=== PATIENT | female | born 1990 | race Two or more races ===

== ENCOUNTER 2023-04-07 14:45 | Outpatient (OUT) | payer OTHER, SELFPAY ==
--- NOTE | 2023-04-07 15:23 | US_ITS ---
The [address] [address] Patient Name: HEYDI SAINZ MRN: [id number] date: 1990 Sex: F Assigned Patient Location: LAB Current Patient Location: LAB Accession/Order Number: [id number] Exam Date: 04/07/2023 15:25 Report Date: 04/07/2023 17:01 At the request of: HIMA LINARES Procedure: US pelvis w/ transvaginal EXAM: Pelvic ultrasound HISTORY: . Mennorhagia with regular cycle N92.0 . COMPARISON: None. TECHNIQUE: Transabdominal and transvaginal scanning was performed. FINDINGS: Scanning of the pelvis demonstrates an anteverted uterus measuring 8.6 x 5.1 x 4.6 cm. Endometrial complex measures 8 mm. Right ovary measures 4.3 x 1.8 x 2.2 cm. Color-flow is noted. Follicles are noted. No masses are noted. Left ovary measures 3.1 x 2.6 x 2.3 cm. Color-flow is noted. Follicles are noted. No masses are noted. There is a 1.8 x 1.8 cm complicated avascular cyst in the left ovary. No fluid is noted within the cul-de-sac. US/US pelvis w/ transvaginal Impression: 1. Normal-appearing uterus and endometrial complex. 2. Normal right ovary. 3. 1.8 cm complicated catheter cystic avascular lesion in the left ovary. Findings would be most consistent with a hemorrhagic cyst. Less likely would be an inflammatory mass or neoplasm. Clinical correlation is suggested. You may was consider follow-up in 8-12 weeks. If this is a hemorrhagic cyst, this should show decrease in size and/or resolution. Electronically authenticated by: DEMETRICE MCCOLLUM Date: 04/07/2023 17:01
[2023-04-07 15:32] LABS: Basophils Percent Auto 0.4 % (0.2-2.0); Eosinophils Absolute Auto 0.1 10^3/uL (0.0-0.7); Eosinophils Percent Auto 1.1 % (0.9-7.0); Hematocrit 36.2 % (36.0-48.0); Hemoglobin 11.9 g/dL (12.0-16.0); Immature Granulocytes Abs Auto 0.02 10^3/uL (0.00-0.03); Immature Granulocytes Pct Auto 0.2 % (0.0-0.5); Lymphocytes Absolute Auto 2.1 10^3/uL (1.2-3.8); Lymphocytes Percent Auto 23.5 % (20.5-60.0); Mean Corpuscular HGB Conc 32.9 g/dL (29.9-35.2); Mean Corpuscular Hemoglobin 31.6 pg (26.7-34.0); Mean Corpuscular Volume 96.3 fL (81.0-99.0); Mean Platelet Volume 10.1 fL (9.5-13.5); Monocytes Absolute Auto 0.8 10^3/uL (0.3-0.8); Monocytes Percent Auto 9.1 % (1.7-12.0); Neutrophils Absolute Auto 5.9 10^3/uL (1.4-6.5); Neutrophils Percent Auto 65.7 % (43.0-75.0); Platelet Count 286 10^3/uL (150-450); Red Blood Count 3.76 10^6/uL (4.20-5.40); Red Cell Distribution Width 13.9 % (11.0-15.0)
[2023-04-07 16:02] LABS: Estimated Average Glucose 97 mg/dL
[2023-04-07 16:32] LABS: Free T4 0.88 ng/dL (0.76-1.46)
[2023-04-07 16:36] LABS: HCG Quantitative <1 mIU/mL; Thyroid Stimulating Hormone 1.266 uIU/mL (0.358-3.740)
[2023-04-08 04:10] LABS: FSH 5.5 mIU/mL (.); Luteinizing Hormone(LH) 8.7 mIU/mL (.)
[2023-04-10 07:09] LABS: DHEA, Serum 196 ng/dL (31-701)
== END 2023-04-07 14:46 | disposition home or self-care (01) ==
LOC: LAB 14:52
PROVIDERS: Visit Provider Obstetrics & Gynecology
DX: N92.0 Excessive and frequent menstruation with regular cycle (principal); R10.2 Pelvic and perineal pain; N83.202 Unspecified ovarian cyst, left side
CPT/HCPCS: 36415; 76830; 76856; 82626; 82627; 83001; 83002; 83036; 84439; 84443; 84702; 85025

== ENCOUNTER 2023-05-29 08:55 | Outpatient (OUT) | payer OTHER, SELFPAY | END 2023-05-29 08:56 | disposition home or self-care (01) | LOC: PST 08:56 | PROVIDERS: Visit Provider Obstetrics & Gynecology | DX: Z01.818 Encounter for other preprocedural examination (principal); N92.0 Excessive and frequent menstruation with regular cycle; R10.2 Pelvic and perineal pain; R10.9 Unspecified abdominal pain ==

== ENCOUNTER 2023-06-12 08:18 | Day surgery (SDC) | payer OTHER, SELFPAY ==
[2023-05-29 09:26] VITALS: BP 108/72; PULSE 64; RESP 14; TEMP 36.4; O2SAT 98; BMI 29.8
[2023-06-12] VITALS (15 sets, daily range): BP systolic 85–126; BP diastolic 54–76; PULSE 63–98; RESP 12–20; TEMP 36.1–36.6; O2SAT 98–100; BMI 29.9
[2023-06-12 08:29] LABS: Basophils Percent Auto 0.5 % (0.2-2.0); Eosinophils Absolute Auto 0.1 10^3/uL (0.0-0.7); Eosinophils Percent Auto 1.9 % (0.9-7.0); Hemoglobin 12.2 g/dL (12.0-16.0); Immature Granulocytes Abs Auto 0.01 10^3/uL (0.00-0.03); Immature Granulocytes Pct Auto 0.2 % (0.0-0.5); Mean Corpuscular Hemoglobin 31.3 pg (26.7-34.0); Mean Corpuscular Volume 94.9 fL (81.0-99.0); Monocytes Absolute Auto 0.9 10^3/uL (0.3-0.8); Neutrophils Absolute Auto 3.3 10^3/uL (1.4-6.5); Neutrophils Percent Auto 51.4 % (43.0-75.0); Platelet Count 297 10^3/uL (150-450); Red Cell Distribution Width 13.3 % (11.0-15.0); White Blood Count 6.4 10^3/uL (4.0-11.0)
[2023-06-12] MEDS: LACTATED RINGER'S SOLUTION 1,000 ML 50 ML IV (08:46)
[2023-06-12 08:53] LABS: HCG Quantitative <1 mIU/mL
[2023-06-12] MEDS: SCOPOLAMINE 1 MG/3 DAYS TRANSDERM PATCH 1 PATCH TD (09:56)
--- NOTE | 2023-06-12 11:31 | PM.ONB ---
Brief Operative Note Date of procedure: 06/12/23 Pre-op diagnosis: pelvic pain, menorrhagia Post-op diagnosis: same as pre-op Procedure: NAME OF PROCEDURE: [ D&c hysteroscopy, diagnostic laparoscopy] findings: posterior culdesac endometrial implants, pelvic vascular congestion syndrome PROCEDURE: The patient was taken back to the Operating Room where she was prepped and draped in normal sterile fashion after being placed under general anesthesia without difficulty. She was also placed in the dorsal lithotomy position. A weighted speculum was placed in the patient?s vagina. The anterior lip of the cervix was identified and grasped with a single tooth tenaculum. The patient?s uterus was then sounded roughly to [? 8] cm. The patient was then gently dilated using Hegar dilators. The hysteroscope was passed through the patient?s cervix into the uterus. Both ostia were identified. fluffy appearing endometrium. No gross evidence of malignancy, no gross evidence of polyps or fibroids. At that point, gentle curettage was performed until a gritty texture was noted. The endometrial curettings were sent out to pathology. The single tooth tenaculum was then removed from the patient's anterior lip of the cervix where excellent hemostasis was noted. . A sponge stick was placed into the patient's vagina. Attention was turned to the patient's abdomen, where a small umbilical incision was made. The fascia was tented using Yasmany clamps and the fascia was entered sharply. Confirmation of intraabdominal placement of the 10 mm port was confirmed under direct visualization using a laparoscope. The patient's abdomen was then insufflated using CO2 gas with approximately 4 liters. A second port was placed left laterally, this was done under direct visualization with a 5 mm port. Survey of the patient's abdomen demonstrated normal liver and gallbladder. Survey of the patient's pelvic anatomy demonstrated normal appearing rt and lt ovary and absent tubes as well as normal appearing uterus. posterior culdesac endometrial implants could be noted, no evidence of any pelvic disease was seen, normal appearing pelvic cavity. All instruments were removed from the patient's abdomen. The patient's abdomen was deinsufflated of CO2 gas. The patient tolerated the procedure well. Sponge stick was removed from the patient's vagina. The patient's infraumbilical fascia was closed using #0 Vicryl on a GI needle. The patient's skin was closed laterally and infraumbilically using 4-0 Vicryl. The patient tolerated the procedure well. Sponge, lap and needle counts were correct x 2. The patient was taken to Recovery Room in stable condition. Anesthesia: MARY Surgeon: Daniel Garsia Lead Javascript Engineer: Agatha Morrison Estimated blood loss (mL): 5 Pathology: other (endometrial currettings) Condition: stable Disposition: PACU
[2023-06-12] MEDS: HYDROCODONE/ACET 5-325 MG TABLET 1 TAB PO (11:58)
[2023-06-12] MEDS: HYDROMORPHONE HCL 0.5 MG/0.5 ML SYRINGE IV (12:07)
[2023-06-12] MEDS: PROMETHAZINE HCL 25 MG TABLET PO (12:54)
== END 2023-06-12 13:55 | disposition home or self-care (01) ==
PROVIDERS: Visit Provider Obstetrics & Gynecology
PROC: (CPT 49320; principal; 2023-06-12 09:30)
DX: N92.0 Excessive and frequent menstruation with regular cycle (principal); R10.2 Pelvic and perineal pain; R10.9 Unspecified abdominal pain; Z87.891 Personal history of nicotine dependence; Z98.51 Tubal ligation status; N94.89 Other specified conditions associated with female genital organs and menstrual cycle
CPT/HCPCS: 49320; 58558; 36415; 84702; 85025; 88305; J1170; J2704

== ENCOUNTER 2023-09-09 21:34 | Outpatient (REF) | payer OTHER, SELFPAY ==
--- OUTSIDE RECORDS SUMMARY | 2023-09-09 21:37 | XMS_ITS | CCD ---
Author Name Unknown Address [address] [place] [address] Organization [facility] Care Team Providers Care Digital Sales Representative Name Role Phone FRANSISCA GARCIA Attending Unavailable Results Test Name Value Interpretation Reference Range Facility Comprehensive Metabolic Pane [facility] 04-16-2023 Albumin [Mass/Vol] 4.7 g/dL Critically high 3.5-4.6 M [facility] Comment on above: Performed By: #### C MP #### [facility] [address] [place] [address] ALP [Catalytic activity/Vol] 41 U/L Normal 40-130 [facility] Comment on above: Performed By: #### C MP #### [facility] [address] [place] [address] ALT [Catalytic activity/Vol] 9 U/L Normal 0-33 [facility] Comment on above: Performed By: #### C MP #### [facility] [address] [place] [address] Anion gap [Moles/Vol] 12 mmol/L Normal 9-15 [facility] Comment on above: Performed By: #### C MP #### [facility] [address] [place] [address] AST [Catalytic activity/Vol] 14 U/L Normal 0-35 [facility] Comment on above: Performed By: #### C MP #### [facility] [address] [place] [address] Bilirubin [Mass/Vol] 0.5 mg/dL Normal 0.2-0.7 [facility] Comment on above: Performed By: #### C MP #### [facility] [address] [place] [address] Calcium [Mass/Vol] 9.2 mg/dL Normal 8.5-9.9 [facility] Comment on above: Performed By: #### C MP #### [facility] [address] [place] [address] Chloride [Moles/Vol] 104 mmol/L Normal 95-107 [facility] Comment on above: Performed By: #### C MP #### [facility] [address] [place] [address] CO2 [Moles/Vol] 24 mmol/L Normal 20-31 [facility] Comment on above: Performed By: #### C MP #### [facility] [address] [place] [address] Creatinine [Mass/Vol] 0.71 mg/dL Normal 0.50-0.90 [facility] Comment on above: Performed By: #### C MP #### [facility] [address] [place] [address] GFR >60.0 Normal >60 [facility] Comment on above: Result Comment: Pedi atric calculator link https://www.kidney.org/professionals/kdoqi/gfr_calculatorped Effective May 05, 2022 These results are not intended for use in patients <18 years of age. eGFR results are calculated without a race factor using the 2020 CKD-EPI equation. Careful clinical correlation is recommended, particularly when comparing to results calculated using previous equations. The CKD-EPI equation is less accurate in patients with extremes of muscle mass, extra-renal metabolism of creatinine, excessive creatinine ingestion, or following therapy that affects renal tubular secretion. Performed By: #### C MP #### [facility] [address] [place] [address] Globulin (S) [Mass/Vol] 2.3 g/dL Normal 2.3-3.5 [facility] Comment on above: Performed By: #### C MP #### [facility] [address] [place] [address] Glucose [Mass/Vol] 102 mg/dL Critically high 70-99 [facility] Comment on above: Performed By: #### C MP #### [facility] [address] [place] [address] Potassium [Moles/Vol] 4.4 mmol/L Normal 3.4-4.9 [facility] Comment on above: Performed By: #### C MP #### [facility] [address] [place] [address] Protein [Mass/Vol] 7.0 g/dL Normal 6.3-8.0 [facility] Comment on above: Performed By: #### C MP #### [facility] [address] [place] [address] Sodium [Moles/Vol] 140 mmol/L Normal 135-144 [facility] Comment on above: Performed By: #### C MP #### [facility] [address] [place] [address] Urea nitrogen [Mass/Vol] 14 mg/dL Normal 6-20 [facility] Comment on above: Performed By: #### C MP #### [facility] [address] [place] [address] Lipid Panelon 04-16-2023 Cholesterol [Mass/Vol] 193 mg/dL Normal 0-199 [facility] Comment on above: Result Comment: ATP III Cholesterol classification is Desirable. Performed By: #### L IPID #### [facility] [address] [place] [address] Cholesterol in HDL [Mass/Vol] 67 mg/dL Critically high 40-59 [facility] Comment on above: Result Comment: ATP III HDL Cholesterol Classification is high. Expected Values: Males: >55 = No Risk 35-55 = Moderate Risk <35 = High Risk Females: >65 = No Risk 45-65 = Moderate Risk <45 = High Risk NCEP Guidelines: Third Report December 2000 >59 = negative risk factor for CHD <40 = major risk factor for CHD Performed By: #### L IPID #### [facility] [address] [place] [address] Cholesterol in LDL [Mass/Vol] 115 mg/dL Normal 0-129 [facility] Comment on above: Result Comment: ATP III LDL Classification is Near Optimal. Performed By: #### L IPID #### [facility] [address] [place] [address] Triglyceride [Mass/Vol] 54 mg/dL Normal 0-150 [facility] Comment on above: Result Comment: ATP III Triglycerides Classification is Normal. Performed By: #### L IPID #### [facility] [address] [place] [address] Comprehensive Metabolic Pane jackie 05-27-2021 Albumin [Mass/Vol] 4.7 g/dL Critically high 3.5-4.6 [facility] Comment on above: Performed By: #### C MP #### [facility] [address] [place] [address] ALP [Catalytic activity/Vol] 37 U/L Low 40-130 [facility] Comment on above: Performed By: #### C MP #### [facility] [address] [place] [address] ALT [Catalytic activity/Vol] 7 U/L Normal 0-33 [facility] Comment on above: Performed By: #### C MP #### [facility] [address] [place] [address] Anion gap [Moles/Vol] 15 mmol/L Normal 9-15 [facility] Comment on above: Performed By: #### C MP #### [facility] [address] [place] [address] AST [Catalytic activity/Vol] 13 U/L Normal 0-35 [facility] Comment on above: Performed By: #### C MP #### [facility] [address] [place] [address] Bilirubin [Mass/Vol] mg/dL Normal 0.2-0.7 [facility] Comment on above: Performed By: #### C MP #### [facility] [address] [place] [address] Calcium [Mass/Vol] 9.4 mg/dL Normal 8.5-9.9 [facility] Comment on above: Performed By: #### C MP #### [facility] [address] [place] [address] Chloride [Moles/Vol] 103 mmol/L Normal 95-107 [facility] Comment on above: Performed By: #### C MP #### [facility] [address] [place] [address] CO2 [Moles/Vol] 24 mmol/L Normal 20-31 [facility] Comment on above: Performed By: #### C MP #### [facility] [address] [place] [address] Creatinine [Mass/Vol] 0.79 mg/dL Normal 0.50-0.90 [facility] Comment on above: Performed By: #### C MP #### [facility] [address] [place] [address] GFR >60.0 Normal >60 [facility] Comment on above: Result Comment: [place] atric calculator link https://www.kidney.org/professionals/kdoqi/gfr_calculatorped Effective May 05, 2022 These results are not intended for use in patients <18 years of age. eGFR results are calculated without a race factor using the 2020 CKD-EPI equation. Careful clinical correlation is recommended, particularly when comparing to results calculated using previous equations. The CKD-EPI equation is less accurate in patients with extremes of muscle mass, extra-renal metabolism of creatinine, excessive creatinine ingestion, or following therapy that affects renal tubular secretion. Performed By: #### C MP #### [facility] [address] [place] [address] Globulin (S) [Mass/Vol] 2.5 g/dL Normal 2.3-3.5 [facility] Comment on above: Performed By: #### C MP #### [facility] [address] [place] [address] Glucose [Mass/Vol] 87 mg/dL Normal 70-99 [facility] Comment on above: Performed By: #### C MP #### [facility] [address] [place] [address] Potassium [Moles/Vol] 4.3 mmol/L Normal 3.4-4.9 [facility] Comment on above: Performed By: #### C MP #### [facility] [address] [place] [address] Protein [Mass/Vol] 7.2 g/dL Normal 6.3-8.0 [facility] Comment on above: Performed By: #### C MP #### [facility] [address] [place] [address] Sodium [Moles/Vol] 142 mmol/L Normal 135-144 [facility] Comment on above: Performed By: #### C MP #### [facility] [address] [place] [address] Urea nitrogen [Mass/Vol] 11 mg/dL Normal 6-20 [facility] Comment on above: Performed By: #### C MP #### [facility] [address] [place] [address] Lipid Panelon 05-27-2021 Cholesterol [Mass/Vol] 182 mg/dL Normal 0-199 [facility] Comment on above: Result Comment: ATP III Cholesterol classification is Desirable. Performed By: #### L IPID #### [facility] [address] [place] [address] Cholesterol in HDL [Mass/Vol] 52 mg/dL Normal 40-59 [facility] Comment on above: Result Comment: ATP III HDL Cholesterol Classification is Desirable. Expected Values: Males: >55 = No Risk 35-55 = Moderate Risk <35 = High Risk Females: >65 = No Risk 45-65 = Moderate Risk <45 = High Risk NCEP Guidelines: Third Report December 2000 >59 = negative risk factor for CHD <40 = major risk factor for CHD Performed By: #### L IPID #### [facility] [address] [place] [address] Cholesterol in LDL [Mass/Vol] 117 mg/dL Normal 0-129 [facility] Comment on above: Result Comment: ATP III LDL Classification is Near Optimal. Performed By: #### L IPID #### [facility] [address] [place] [address] Triglyceride [Mass/Vol] 65 mg/dL Normal 0-150 [facility] Comment on above: Result Comment: ATP III Triglycerides Classification is Normal. Performed By: #### L IPID #### [facility] [address] [place] [address] IntraOperative Documentson 0 10-29-2020 IntraOperative Documents [id number]. 00CD:127 Normal [facility] Postoperative Documentson Postoperative Documents [id number]. 00CD:127 Normal [facility] Coding Summary.on 10-24-2020 Coding Summary. CODING DATE: 10/24/2020 FINAL [facility] STATUS: Home (Routine DC) PAYOR: Medical [facility] APC DESCRIPTION 5361 Level 1 Laparoscopy and Related Services ADMIT DX: REASON FOR VISIT DX: Z30.2 Encounter for sterilization FINAL DX: PRINCIPAL: Z30.2 Encounter for sterilization SECONDARY: Z87.891 Personal history of nicotine dependence PYMT PROC APC STAT DESCRIPTION DOCTOR NAME DATE 22631 5361 J1 Laparoscopy, surgical; Keyon MACIAS, Zeeshan Hernandez 10/19/2020 with removal of adnexal structures (partial or total oophorectomy and/or salpingectomy) 28082 Anesthesia for Finesse Rudolph MD 10/19/2020 intraperitoneal procedures in lower abdomen including laparoscopy; not otherwise specified NOTE: The code number assigned matches the documented diagnosis and / or procedure in the patient's chart. However, the narrative phrase printed from the coding software may appear abbreviated, or result in slightly different terminology. Revised Coded By: Elina Arreola Revised Date Saved: 10/24/2020 03:12 pm Normal [facility] Main OR Intraoperative Recor don 10-23-2020 Main OR Intraoperative Record IntraOp Document Type FT Summary Primary Physician: Zeeshan Ta MD Finalized Date/Time: 10/23/20 13:49:53 Pt. Name: HEYDI SAINZ /Sex: 1990 Female Med Rec #: [id number] Physician: Zeeshan Ta MD Financial #: [id number] Pt. Type: A Room/Bed: [facility]/ Admit/Disch: 10/19/20 11:05:15 - 10/19/20 16:15:00 Institution: Case Times FT Entry 1 Patient Times In Room 10/19/20 12:59:00 Out Room 10/19/20 13:49:00 Procedure Times Start 10/19/20 13:16:00 Stop 10/19/20 13:45:00 Anesthesia Times Start 10/19/20 12:59:00 Stop 10/19/20 13:49:00 Last Modified By: Isaías ASHRAF, Stuart Quinn 10/19/20 13:49:17 General Comments: 10/23/20 Chart open to review and send charges/ Cheyenne Montaño RN Case Attendance FT Entry 1 Entry 2 Entry 3 Case Attendee Jeremie ROJAS, Laurence Ta MD, Zeeshan Metz RN, Stuart Quinn Role Performed Anesthesiologist Surgeon - Primary House Director - Primary Melt Room Operator Time In 10/19/20 12:59:00 10/19/20 13:13:00 10/19/20 12:59:00 Time Out 10/19/20 13:49:00 10/19/20 13:39:00 10/19/20 13:49:00 Procedure TUBAL LIGATION TUBAL LIGATION TUBAL LIGATION LAPAROSCOPIC(Bilateral ) LAPAROSCOPIC(Bilateral ) LAPAROSCOPIC(Bilateral ) Comments , anesthesia converter supervisor Last Modified By: Isaías RN, Stuart Metz RN, Stuart Metz RNStuart 10/19/20 13:53:59 10/19/20 13:53:59 10/19/20 13:53:59 Entry 4 Entry 5 Entry 6 Case Attendee Jarred ASHRAF, Dallas Tong CONTACT ACID PLANT OPERATOR, Tonya Montaño RN, CNOR, Yani Role Performed House Director - Primary Scrub - Primary BEEF CATTLE GRAZIER Time In 10/19/20 12:59:00 10/19/20 12:59:00 10/19/20 12:59:00 Time Out 10/19/20 13:49:00 10/19/20 13:49:00 10/19/20 13:49:00 Procedure TUBAL LIGATION TUBAL LIGATION TUBAL LIGATION LAPAROSCOPIC(Bilateral ) LAPAROSCOPIC(Bilateral ) LAPAROSCOPIC(Bilateral ) Comments in orientation Last Modified By: Stuart Metz RN, RN, Stuart Stephenson RN 10/19/20 13:53:59 10/19/20 13:53:59 10/19/20 13:53:59 General Comments: MAUDE VAZ SURGICAL TECHNOLOGY STUDENT, OBSERVING SURGICAL PROCEDURE. Perioperative Protocols FT Pre-Care Text: Implements protective measures prior to operative or invasive procedure, confirms identity before the operative or invasive procedure, verifies operative procedure, surgical site, and laterality Entry 1 Procedure(s) TUBAL LIGATION Patient Identity Birthday, ID Band LAPAROSCOPIC(Bilateral ) Verified (select at Check, Patient least 2): Participation Consents / H and P Anesthesia Consent, Surgical Site Yes Verified HandP, Surgery/Procedure Verified Consent Laterality Verified n/a Procedure Verified Yes Correct Patient Yes Availability Equipment, Medication Position Verified Verified (If Applicable) Prep Dry Yes PreOp Antibiotic No Given Time Out Laurence Ash Time Out Complete 10/19/20 13:15:00 Keyon Abdalla MD, James D, Krupp RN, Jarred Levin RN, Alycia Shrestha CST, Sabra Bowden RN, CNOR, Dolly Valle Outcomes Met? Yes Last Modified By: Stuart Metz RN 10/19/20 13:16:11 Post-Care Text: The patient is free from signs and symptoms of injury caused by extraneous objects Allergy Information FT Pre-Care Text: Verifies allergies Entry 1 Allergies Reviewed? Yes Allergies Reviewed Self/Patient With Outcomes Met? Yes Last Modified By: Stuart Metz RN 10/19/20 12:56:31 Post-Care Text: The patient received appropriate medication(s) safely administered during the perioperative period Surgical Procedures FT Entry 1 Procedure Description Procedure TUBAL LIGATION Modifiers Bilateral LAPAROSCOPIC Surgeon Description LAPAROSCOPIC BILATERAL SALPINGECTOMY Primary Procedure Yes Primary Surgeon Zeeshan Ta MD Start 10/19/20 13:16:00 Stop 03/19/21 13:45:00 Anesthesia Type General Surgical Service Obstetric Gynecology Wound Class 2 - Clean-Contaminated Last Modified By: Stuart Metz RN 10/19/20 13:54:06 General Case Data FT Pre-Care Text: Classifies surgical wound, implements aseptic technique, initiates traffic control Entry 1 Case Information OR OR 6 FT Case Level Level 3 Wound Class 2 - Clean-Contaminated Specialty Obstetric Gynecology ASA Class 2 Preop Diagnosis DESIRE FOR STERILIZATION Postop Same As Preop Yes Postop Diagnosis DESIRE FOR STERILIZATION Outcomes Met? Yes Last Modified By: Stuart Metz RN 10/19/20 13:14:51 Post-Care Text: The patient is free from signs and symptoms of infection Skin Assessment (Pre Procedure) FT Pre-Care Text: Implements protective measures to prevent skin/ tissue injury due to thermal or mechanical sources Evaluates for signs and symptoms of physical injury to skin and tissue Entry 1 Skin Integrity Intact, [place], Warm, and Skin Abnormality No Dry Outcomes Met? Yes Last Modified By: Stuart Metz RN 10/19/20 12:59:44 Post-Care Text: The patient is free from signs and symptoms of injury caused by extraneous objects Patient Positioning FT Pre-Care Text: Identifies physical alterations that require additional precautions for procedure-specific positioning, verifies presence of prosthetics or corrective devices, positions the patient, evaluates the patient for signs and symptoms of injury as a result of positioning Entry 1 Procedure TUBAL LIGATION Body Position Low Lithotomy LAPAROSCOPIC(Bilateral ) Feet Uncrossed? Yes Left Arm Position Extended on Padded Arm Board Right Arm Position Extended on Padded Arm Left Leg Position Secured in Stirrup Board Right Leg Position Secured in Stirrup Positioning Device Safety Strap, Stirrups Yellow Fins, Pillow Under Head Large Press Points Checked Yes By Stuart Metz RN Outcomes Met? Yes Last Modified By: Stuart Metz RN 10/19/20 12:59:52 Post-Care Text: The patient is free from signs and symptoms of injury related to positioning Patient Care Devices FT Pre-Care Text: Implements protective measures to prevent skin/ tissue injury due to thermal or mechanical sources Entry 1 Entry 2 Entry 3 Equipment Type INSUFLATORS[F] INSUFLOW HEATER UNIT[F] LIGASURE GENERATOR[F] Equipment Number BOOM OR 6 BOOM OR 6 C1 Equipment Setting Outcomes Met? Yes Yes Yes Last Modified By: Isaías ASHRAF, Stuart Metz RN, Stuart Stephenson RN 10/19/20 13:49:11 10/19/20 13:49:11 10/19/20 13:49:11 Entry 4 Entry 5 Entry 6 Equipment Type MISTRAL FORCED AIR MONITOR CHARGE SURGERY PADDED STIRRUPS [F] WARMING SYSTEM UNIT[F] [F] Equipment Number M2 Equipment Setting Outcomes Met? Yes Yes Yes Last Modified By: Isaías ASHRAF, Stuart Metz RN, Stuart Stephenson RN 10/19/20 13:49:11 10/19/20 13:49:11 10/19/20 13:49:11 Entry 7 Entry 8 Equipment Type VENA FLOW UNIT[F] VIDEO SYSTEM[F] Equipment Number Equipment Setting Outcomes Met? Yes Yes Last Modified By: Isaías ASHRAF, Stuart Stephenson RN 10/19/20 13:49:11 10/19/20 13:49:11 Post-Care Text: The patient is free from signs and symptoms of injury caused by extraneous objects Transport To OR FT Pre-Care Text: Transports according to individual needs. Evaluates for signs and symptoms of skin and tissue injury as a result of transfer or transport Entry 1 Via Cart By Jarred ASHRAF, Dallas Cisneros Safety Precautions Side Rails Up Outcomes Met? Yes Last Modified By: Stuart Metz RN 10/19/20 12:56:41 Post-Care Text: The patient is free from signs and symptoms of injury related to transfer/transport Counts Verification FT Pre-Care Text: Performs required counts Entry 1 Entry 2 Procedure(s) TUBAL LIGATION TUBAL LIGATION LAPAROSCOPIC(Bilateral ) LAPAROSCOPIC(Bilateral ) Type Initial Final Items Instruments, Sponges, Sponges, Sharps Sharps Status Correct Correct Time 10/19/20 13:09:00 10/19/20 13:37:00 By Jarred ASHRAF, Dallas Cisneros, Jarred ASHRAF, Dallas Cisneros, Alycia CONTACT ACID PLANT OPERATOR, Tonya Tong CONTACT ACID PLANT OPERATOR, Tonya Randle Outcomes Met? Yes Yes Last Modified By: Isaías ASHRAF, Stuart Stephenson RN 10/19/20 13:14:31 10/19/20 13:38:36 Post-Care Text: The patient is free from signs and symptoms of injury caused by extraneous objects Skin Prep FT Pre-Care Text: Performs skin preparations Entry 1 Entry 2 Procedure TUBAL LIGATION TUBAL LIGATION LAPAROSCOPIC(Bilateral ) LAPAROSCOPIC(Bilateral ) Prep Area abdomen VAGINA Prep Agents Chloraprep/Dry Prior to Betadine Scrub and Draping Solution Start Dry Time 10/19/20 13:11:00 Stop Dry Time 10/19/20 13:14:00 Hair Removal Methods Not Indicated Not Indicated Site By Stuart Metz RN, RN, Dallas Cisneros Outcomes Met? Yes Yes Last Modified By: Stuart Metz RN, RN, Andrea L 10/19/20 13:13:55 10/19/20 13:13:55 Post-Care Text: The patient is free from signs and symptoms of infection Departure From OR FT Pre-Care Text: Transports according to individual needs. Evaluates for signs and symptoms of skin and tissue injury as a result of transfer or transport. Entry 1 Via Cart Safety Precautions Side Rails Up PostOp Destination PACU Transported By Stuart Metz RN, Rogers RN, Dallas Cisneros Patient Status Stable Skin. Condition Intact, [place], Warm, and Description SAME PREOPERATIVE Dry CONDITION WITH EXCEPTION OF ABDOMINAL PORT SURGICAL INCISION SITES. Airway Maintenance Oxygen in Use? Yes Airway Device Simple Mask Flow Rate 8 L Outcomes Met? Yes Last Modified By: Stuart Metz RN 10/19/20 13:22:38 Post-Care Text: The patient is free from signs and symptoms of injury related to transfer/transport General Comments: VERBAL AND WRITTEN REPORT GIVEN TO PACU NURSEKali LÓPEZ RN Dressing/Packing FT Pre-Care Text: Administers care to wound sites Entry 1 Type Dressing Items BANDAID SHEER 1 X 3 [99044][F] Site and Details ABDOMEN- MASTISOL, Outcomes Met? Yes STERI STRIPS, BAND AIDS. VAGINA- BLANCA PAD Last Modified By: Stuart Metz RN 10/19/20 13:23:03 Post-Care Text: The patient is free from signs and symptoms of infection Medication Administration FT Pre-Care Text: Verifies allergies, administers prescribed medications and solutions, administers prescribed antibiotic therapy and immunizing agents as ordered, evaluates response to medications Administers prescribed medications and solutions Entry 1 Route of Admin Field Expiration Date Yes Verified Ordered By Zeeshan Ta MD Transcribed/To Stuart Metz RN Field By Administered By Zeeshan Ta MD Outcomes Met? Yes Last Modified By: Stuart Metz RN 10/19/20 12:59:32 Post-Care Text: The patient received appropriate medication(s) safely administered during the perioperative period For Sebastian-Joseph please see scanned medication reconcilliation form for medications used at the field during the procedure. Urinary Catheter Pre-Care Text: Patient is prepped using sterile technique. Entry 1 Urinary Catheter CATH URETHRAL STRAIGHT Present Upon Arrival No Inserted 16FR [[id number]][F] Insertion Date/Time 10/19/20 13:15:00 Insertion Site Uretheral Urine URINE OUTPUT NOT Inserted By Dallas Stern RN Characteristics MEASURED FOR CASE Discontinued? Yes When was the Immediately Discontinued catheter discontinued? DC'd By Dallas Stern RN Outcomes Met? Yes Last Modified By: Stuart Metz RN 10/19/20 13:13:19 Post-Care Text: The patient is free from signs of trauma. Cultures and Specimens FT Pre-Care Text: Manages specimen handling and disposition Manages culture specimen collection Entry 1 Cultures Ordered No Specimens Ordered Yes Specimen Disposition Designated OR Area Frozen Section Times Outcomes Met? Yes Last Modified By: Stuart Metz RN 10/19/20 13:31:57 Post-Care Text: The patient is free from signs and symptoms of injury caused by extraneous objects The patient is free from signs and symptoms of infection General Comments: specimen; 1. left fallopian tube 2. right fallopian tube- A.ANDRIY Metz Temperature Control Entry 1 Temperature Control BLANKET MISTRAL AIR Quantity 1 Aid TORSO [[id number]][F] Fluid/[place] Unit Mistral warming system Setting 43 C/ HIGH Body Site Upper anterior torso Last Modified By: Stuart Metz RN 10/19/20 13:23:28 Sign Out FT Entry 1 Before Patient Leaves OR Nurse verbally Yes Nurse verbally Yes confirms with the confirms with the team the name of team that the procedure(s) instrument, sponge, recorded and needle counts are correct (or N/A) Nurse verbally Yes Nurse verbally Yes confirms with the confirms with the team how the team whether there specimen is labeled are any equipment (including patient problems to be name), if applicable addressed Sign Out Complete 10/19/20 13:38:00 Last Modified By: Isaías ASHRAF Stuart L 10/19/20 13:38:47 Case Comments Finalized By: ANGEL Montaño RN, Lou Ann Document Signatures Signed By: Stuart Mezt RN 10/19/20 13:54 Stuart Metz RN 10/19/20 13:54 ANGEL Montaño RN, Lou Ann 10/23/20 13:49 [facility] Consent for Anesthesiaon Consent for Anesthesia [id number] 0CD:127 [facility] Discharge Instructionson Discharge Instructions [id number] 0CD:127 [facility] IntraOperative Documentson 0 10-22-2020 IntraOperative Documents [id number] 0CD:127 [facility] IntraOperative Documents [id number] 0CD:127 [facility] Physician Orderon 10-22-2020 Physician Order [id number] 0CD:127 [facility] Preoperative Documentson Preoperative Documents [id number]#1.0 0CD:127 [facility] Operative Reporton Operative Report Date of Surgery: 10/19/2020 SURGEON: Zeeshan Ta MD, FACOG PREOPERATIVE DIAGNOSIS: Multiparity, patient desires sterilization POSTOPERATIVE DIAGNOSIS: Multiparity, patient desires sterilization OPERATION: Bilateral salpingectomy for sterilization ANESTHESIA: General ANESTHESIOLOGIST: CRYSTAL Romero PREOPERATIVE HISTORY: The patient is a 30 year old white female who presented to my office desirous of operative sterilization. She stated she no longer desired reproductive capacity. We discussed the alternatives of long acting reversible contraction, other methods could be used. She was resolute in her decision for operative sterilization. We discussed the risks involved including bleeding, infection, injury to internal organs, the permanence of procedure, failure rate associated with procedure, risk of regret, risk of ectopic all of which she understood and accepted, appropriately signed consent forms and was made ready for the Operative Suite. OPERATIVE TECHNIQUE: The patient was taken to the Operative Suite and after general anesthesia was administered the patient was draped and prepped in the usual fashion for abdominal surgery. A sharp knife was used to make a scoring incision subumbilical which allowed for the Veress needle to be placed in the peritoneal cavity. The peritoneal cavity was insufflated with 2 1/2 liters of carbon dioxide to a pressure of 15 mm. Laparoscopic sheath and trocar were introduced into the peritoneal cavity. Secondary and tertiary probes were placed under direct visualization and the uterus appeared normal. The left fallopian tube was followed out to its fimbriated end, grasped with the graspers. The LigaSure device was used to create pedicles underneath the fallopian tube. A series of ligations and incisions were carried out using the LigaSure device allowing for complete removal of the left fallopian tube. Similar procedure was performed on the right side with the right fallopian tube being completely removed. Hemostasis was assured. Estimated blood loss was minimal. The laparoscopic sheaths were used to allow for the gas to escape from the peritoneal cavity and once this was done the laparoscopic sheaths were removed from the peritoneal cavity. Skin edge was closed with 4-0 Vicryl suture in a subcuticular stitch. Steri-Strips and usual dressing applied. Estimated blood loss was minimal. Fluid replacement adequate. There were no complications. Sponge and needle counts correct and the patient was transferred to Recovery Room in stable condition. Zeeshan Ta MD, FACOG [facility] Dictated: 10/19/2020 #[id number] Typed: 10/19/2020 #[id number] cc: Zeeshan Ta MD, MADELEINE [facility] Comment on above: Result Comment: Elec tronically Signed By: Zeeshan Ta MD\.br\Date and Time Signed: 10/20/20 10:50 EDT Consent for Treatmenton 10-01 Consent for Treatment [id number] 0CD:127 [facility] History and Physicalon 10-19 History and Physical HOSPITAL REGULATION S: ALL Positive Important Negative Findings Shall Be Recorded DATE ADMITTED: 10/19/2020 ADMITTING DIAGNOSIS: Multiparity, the patient desires sterilization. HISTORY OF PRESENT ILLNESS: The patient is a 30-year-old white female who presented my office desirous of operative sterilization. She stated the fact that she no longer desires her reproductive capacity. We discussed the alternatives of care including long-acting reversible contraception. She was adamant in her decision for operative sterilization. We discussed the risks involved including bleeding, infection, injury to internal organs, the permanency of procedure, failure rate associated with procedure, risk of regret, risk of ectopic , all of which she understood, accepted, appropriately signed consent forms and made ready for the Operative Suite. PAST MEDICAL HISTORY: Allergies: No known allergies. Medications: No medicines. Illnesses: None. Surgeries: [place] teeth. FAMILY HISTORY: Positive for hypertension. PSYCHOSOCIAL HISTORY: Former smoker, negative for ETOH. REVIEW OF SYSTEMS: Noncontributory. PHYSICAL EXAMINATION: GENERAL: A well-developed, well-nourished, white female in no acute distress. VITAL SIGNS: Afebrile, pulse 80, respirations 18, blood pressure 112/78. HEAD AND E.E.N.T.: Normocephalic. Extraocular muscles intact. The pupils equal and responsive to light and accommodation. Nose and throat clear. NECK: Without masses. Without thyromegaly. LUNGS: Clear to auscultation and percussion. HEART: Regular rate and rhythm. BREASTS: Nonpathologic. ABDOMEN: Soft, nontender. Positive bowel sounds without organomegaly. EXTREMITIES: Negative for clubbing, cyanosis or edema. PELVIC: Normal external genitalia. Vault within normal limits. Cervix without lesion. Uterus generous normal size, shape, consistency. Adnexa without mass, nontender. IMPRESSION: A 30-year-old for operative sterilization. Zeeshan Ta MD, FACOG gls Dictated: 10/18/2020 #[id number] Typed 10/19/2020 #[id number] cc: Zeeshan Ta MD, FACOG [facility] Comment on above: Result Comment: Elec tronically Signed By: Zeeshan Ta MD\.br\Date and Time Signed: 10/19/20 09:57 EDT Inpatient Patient Summaryon 10-19-2020 Inpatient Patient Summary [address] [address] [facility] Clinical Discharge Instructions PERSON INFORMATION Name: HEYDI SAINZ [facility]ANS Admitting Physician: Zeeshan Ta MD Attending Physician: Zeeshan Ta MD PCP: Karissa CALDERON MD Discharge Diagnosis: Encounter for sterilization; Status post bilateral salpingectomy Comment: PATIENT EDUCATION INFORMATION Instructions: ACOUSTICAL CARPENTER - Post D&C, Hysteroscopy, LEEP or Essure/Laparoscopy (CUSTOM); Post Op Patient Instructions - FT (CUSTOM) Medication Leaflets: Follow up: With: Address: When: Zeeshan Ta [address] [place] [address] Business (1) Within 2 weeks Comments: Call for any problems. Call for followup appointment MEDICATION LIST New Medications [facility] 0382, [address] [phone], [phone] acetaminophen-oxycodon e (Percocet 325 mg-5 mg Tab) 1 Tablets By Mouth every 6 hours as needed for pain for 2 Days. Refills: 0. Medications to Continue with No Changes Other Medications multivitamin (Multi Vitamins oral tablet) 1 Tablets By Mouth every day as needed Prophylaxis. Comment: [facility] Main OR PACU I Recordon 10-01 Main OR PACU I Record PACU Phase I Document Type FT Summary Primary Physician: Zeeshan Ta MD Finalized Date/Time: 10/19/20 15:20:31 Pt. Name: TIRSO SAINZRUSLAN Morris D.O.B./Sex: 1990 Female Med Rec #: [id number] Physician: Zeeshan Ta MD Financial #: [id number] Pt. Type: A Room/Bed: [facility] Admit/Disch: 10/19/20 11:05:15 - Institution: Case Times PACU I FT Pre-Care Text: Identifies barriers to communication and implements measures to provide psychological support Develops individualized plan of care, and ensures continuity of care Maintains patient's dignity and privacy, and maintains patient confidentiality Identifies and reports philosophical, cultural, and spiritual beliefs and values Identifies individual values and wishes concerning care Implements aseptic technique, and administers prescribed antibiotic therapy and immunizing agents as ordered Evaluates postoperative tissue perfusion Implements thermoregulation measures, and monitors body temperature Evaluates postoperative respiratory status Evaluates postoperative cardiac status Evaluates postoperative neurological status Assesses pain control, collaborated in initiating patient-controlled analgesia and implements alternative methods of pain control Verifies allergies, administers prescribed medications and solutions, evaluates response to medications Entry 1 In PACU I 10/19/20 13:50:00 Discharge from PACU 10/19/20 14:44:00 I Outcomes Met? Yes Last Modified By: Lindy Garcia RN 10/19/20 15:20:06 Post-Care Text: The patient demonstrates knowledge of the expected response to the operative or invasive procedure The patient's care is consistent with the individualized perioperative plan of care The patient's right to privacy is maintained The patient's value system, lifestyle, ethnicity, and culture are considered, respected, and incorporated into the perioperative plan of care The patient participates in decisions affecting his or her perioperative plan of care The patient is free from signs and symptoms of infection The patient has wound/tissue perfusion consistent with or improved from baseline levels established preoperatively The patient is at or returning to normothermia at the conclusion of the immediate postoperative period The patient's respiratory function is consistent with or improved from baseline levels established preoperatively The patient's cardiovascular status is consistent with or improved from baseline levels established preoperatively The patient's cardiovascular status is consistent with or improved from baseline levels established preoperatively The patient demonstrates and/or reports adequate pain control throughout the perioperative period The patient received appropriate medication(s), safely administered during the perioperative period Acuity Level PACU I FT Entry 1 Start Time 10/19/20 13:50:00 Stop Time 10/19/20 14:44:00 Acuity Level Acuity Level I Last Modified By: Lindy Garcia RN 10/19/20 15:20:29 Finalized By: Lindy Garcia RN Document Signatures Signed By: Lindy Garcia RN 10/19/20 15:20 [facility] Main OR PACU II Recordon Main OR PACU II Record PACU Phase II Document Type FT Summary Primary Physician: Zeeshan Ta MD Finalized Date/Time: 10/19/20 17:29:50 Pt. Name: HEYDI SAINZ /Sex: 1990 Female Med Rec #: [id number] Physician: Zeeshan Ta MD Financial #: [id number] Pt. Type: A Room/Bed: [facility] Admit/Disch: 10/19/20 11:05:15 - Institution: Case Times PACU II FT Pre-Care Text: Identifies barriers to communication and implements measures to provide psychological support and determines knowledge level Develops individualized plan of care, and ensures continuity of care Maintains patient's dignity and privacy, and maintains patient confidentiality Identifies and reports philosophical, cultural, and spiritual beliefs and values Identifies individual values and wishes concerning care administers prescribed antibiotic therapy and immunizing agents as ordered, Evaluates postoperative tissue perfusion Implements thermoregulation measures, and monitors body temperature Evaluates postoperative respiratory status Evaluates postoperative cardiac status Evaluates postoperative neurological status Assesses pain control, collaborated in initiating patient-controlled analgesia and implements alternative methods of pain control Verifies allergies, administers prescribed medications and solutions, evaluates response to medications Entry 1 In PACU II 10/19/20 14:50:00 Discharge from PACU 10/19/20 16:15:00 II Outcomes Met? Yes Last Modified By: Marti Wallace RN 10/19/20 17:29:49 Post-Care Text: The patient demonstrates knowledge of the expected response to the operative or invasive procedure The patient's care is consistent with the individualized perioperative plan of care The patient's right to privacy is maintained The patient's value system, lifestyle, ethnicity, and culture are considered, respected, and incorporated into the perioperative plan of care The patient participates in decisions affecting his or her perioperative plan of care. The patient is free from signs and symptoms of infection The patient has wound/tissue perfusion consistent with or improved from baseline levels established preoperatively The patient is at or returning to normothermia at the conclusion of the immediate postoperative period The patient's respiratory function is consistent with or improved from baseline levels established preoperatively The patient's cardiovascular status is consistent with or improved from baseline levels established preoperatively The patient's neurological status is consistent with or improved from baseline levels established preoperatively The patient demonstrates and/or reports adequate pain control throughout the perioperative period The patient received appropriate medication(s), safely administered during the perioperative period Finalized By: Marti Wallace RN Document Signatures Signed By: Marti Wallace RN 10/19/20 17:29 [facility] Main OR Preoperative Recordo n 10-19-2020 Main OR Preoperative Record PreOp Document Type FT Summary Primary Physician: Zeeshan Ta MD Finalized Date/Time: 10/19/20 13:00:13 Pt. Name: HEYDI SAINZ /Sex: 1990 Female Med Rec #: [id number] Physician: Zeeshan Ta MD Financial #: [id number] Pt. Type: A Room/Bed: [facility] Admit/Disch: 10/19/20 11:05:15 - Institution: Case Times PreOp FT Pre-Care Text: Verifies consent for planned procedure, identifies individual values and wishes concerning care, includes family members in perioperative teaching Entry 1 Patient Times. In Pre Surgery 10/19/20 11:05:00 Out Pre Surgery 10/19/20 12:57:00 Outcomes Met? Yes Last Modified By: Stuart Metz RN 10/19/20 13:00:12 Post-Care Text: The patient participates in decisions affecting his or her perioperative plan of care Finalized By: Stuart Metz RN Document Signatures Signed By: Stuart Metz RN 10/19/20 13:00 [facility] Monitor Recordon 10-19-2020 Monitor Record [id number]. 00CD:127 [facility] Outpatient Surgery Discharge Instructionon 10-19-2020 Outpatient Surgery Discharge Instruction [place] [id number] Patient Discharge Instructions PERSON INFORMATION Name: HEYDI SAINZ Date of : 1990 Current Date: 10/19/2020 13:59:38 PHYSICIANS Admitting Physician: Zeeshan Ta MD Discharge Diagnosis: Encounter for sterilization; Status post bilateral salpingectomy HEYDI SAINZ has been given the following list of follow-up instructions, prescriptions, and patient education materials: PATIENT FOLLOW-UP INFORMATION Diet: Regular Discharge Activity: Expect mild pain, Expect minimal amount of drainage and/or bleeding, Activity as tolerated Call Your Doctor For: Persistent or heavy bleeding, Temperature above 101.5 degrees, Persistent vomiting Wound Care Instructions: Keep incision dry IF UNABLE TO CONTACT YOUR PHYSICIAN AND YOU FEEL IT IS AN EMERGENCY, GO TO THE NEAREST EMERGENCY ROOM OR CALL 911 [place], HEYDI SAINZ, have received the attached patient education materials/instructions and have verbalized understanding: May we do a follow up call? Yes No I was present when discharge instructions were given Patient Signature Date Clinican/Nurse Signature ___ Date Follow up: With: Address: When: Zeeshan Sifuentes [facility], [place] [address], [facility], [place] [id number] Business (1) Within 2 weeks Comments: Call for any problems. Call for followup appointment Pharmacy Information: Other: [facility] You may receive a survey from [employer] asking you to rate your care experience. Your feedback is important and will help us understand what we do well and how we can improve the quality of care we provide to you, your loved ones and our community. It?s an honor to serve you. Thank you for choosing [facility] HERE ARE THE MEDICATION CHANGES THAT OCCURRED DURING YOUR HOSPITAL STAY New Medications [facility] 9296, [address] [phone], [phone] acetaminophen-oxycodon e (Percocet 325 mg-5 mg Tab) 1 Tablets By Mouth every 6 hours as needed for pain for 2 Days. Refills: 0. Medications to Continue with No Changes Other Medications multivitamin (Multi Vitamins oral tablet) 1 Tablets By Mouth every day as needed Prophylaxis. PATIENT EDUCATION INFORMATION Instructions: Instructions post D & C, hysteroscopy, LEEP or Essure/laparoscopy You can resume all normal activities within 24 hours following surgery. For 24 hours: no driving, making any important decisions, drinking alcohol ? and a responsible adult should stay with you today. Please refrain from intercourse, douches, and tampons for the next two weeks. You can expect some vaginal spotting, cramps, or light bleeding for a week and up to ten days after surgery. This is normal. If you are soaking a pad an hour or more frequently ? you need to call your doctor. Your first period may not be normal, but most women resume their normal cycles within a month or two. It is helpful for your doctor if you keep a written record of your bleeding following surgery. When abnormal bleeding persists for 2-3 cycles, please bring the record to your doctor. Return to the office for post-operative check, and to go over any biopsy results at your scheduled appointment; usually two weeks following surgery. If you are uncertain if an appointment has been made, please call the office. CALL THE DOCTOR if you have severe pain, heavy bleeding, or a temperature of 100.5 or higher. Resume your regular home medication schedule as soon as you are eating a regular diet. You can either take the prescribed medications as directed for pain, or you can take over the counter pain medication such as Motrin, as indicated on the package for pain or cramps. PLEASE CALL FOR ANY PROBLEMS [facility] Outside Recordson 10-19-2020 Outside Records [id number]. 00CD:127 [facility] Patient Education - Texton 0 10-19-2020 Patient Education - Text Instructions post D & C, hysteroscopy, LEEP or Essure/laparoscopy You can resume all normal activities within 24 hours following surgery. For 24 hours: no driving, making any important decisions, drinking alcohol ? and a responsible adult should stay with you today. Please refrain from intercourse, douches, and tampons for the next two weeks. You can expect some vaginal spotting, cramps, or light bleeding for a week and up to ten days after surgery. This is normal. If you are soaking a pad an hour or more frequently ? you need to call your doctor. Your first period may not be normal, but most women resume their normal cycles within a month or two. It is helpful for your doctor if you keep a written record of your bleeding following surgery. When abnormal bleeding persists for 2-3 cycles, please bring the record to your doctor. Return to the office for post-operative check, and to go over any biopsy results at your scheduled appointment; usually two weeks following surgery. If you are uncertain if an appointment has been made, please call the office. CALL THE DOCTOR if you have severe pain, heavy bleeding, or a temperature of 100.5 or higher. Resume your regular home medication schedule as soon as you are eating a regular diet. You can either take the prescribed medications as directed for pain, or you can take over the counter pain medication such as Motrin, as indicated on the package for pain or cramps. PLEASE CALL FOR ANY PROBLEMS [facility] Progress Note-Physicianon Progress Note-Physician Patient: HEYDI SAINZ [facility]: [id number] Age: 30 years Sex: Female : 1990 Associated Diagnoses: None Author: Finesse Rudolph MD Preoperative Information Anesthesia history: Patient History: No personal or Family history of problems with anesthesia. Re-eval prior to induction: Inital eval reviewed: No significant interval change. Review of Systems Constitutional: Negative. Cardiovascular: Cardiovascular risk stratafacation reviewed, 1 FOS without difficulty, No chest pain. Respiratory: No SOB. Hematology/Lymphatics: Negative. Gastrointestinal: Negative. Musculoskeletal: Negative. Neurologic: Negative. Health Status Allergies: Allergic Reactions (Selected) No Known Allergies Current medications: (Selected) Inpatient Medications Ordered Lactated Ringers IV Radha 1000 mL 1,000 mL: 1,000 mL, IV, 150 mL/hr, Routine, Start date 10/19/20 10:30:00 EDT, 6.7 hour(s), Total volume (mL): 1,000, 77.5 kg, 1.94, m2 Documented Medications Documented Multi Vitamins oral tablet: 1 tab(s), Oral, Daily Prophylaxis, Refill(s) 0 Problem list: All Problems Smoker / SNOMED CT 809460404 / Confirmed Added secondary to documentation in Social History. Chronic constipation / SNOMED CT 348876573 / Confirmed Group B streptococcus / SNOMED CT 960465128 / Confirmed BMI 29.0-29.9,adult / SNOMED CT 78278911 / Confirmed Inactive: Depression / SNOMED CT 33826472 Resolved: Tobacco use during / Patient Care Resolved: Fatigue / SNOMED CT 766307507 Resolved: Pulse visible in abdominal aorta / SNOMED CT 1865204854 Resolved: / SNOMED CT 393593811 Resolved: / SNOMED CT 026688615 Canceled: Vaginal candidiasis / SNOMED CT 574474545 Canceled: Insomnia / SNOMED CT 389048236 Canceled: Allergic contact dermatitis / SNOMED CT 032857438 Canceled: Abnormal weight loss / SNOMED CT 700250381 Canceled: Peripheral edema / SNOMED CT 765727147 Histories Past Medical History: Resolved (456635717): Onset on 11/01/2014 at 24 years. Resolved on 06/24/2015 at 25 years. Tobacco use during : Resolved on 06/02/2011 at 21 years. Fatigue (313457837): Resolved. Pulse visible in abdominal aorta (4438570881): Resolved. Procedure history: Esophagogastroduodenos copy (892918120) on 03/29/2012 at 22 Years. Extraction of impacted wisdom teeth (837207324). Social History Social & Psychosocial Habits Alcohol 05/20/2019 Use: Current Type: Wine Frequency: 1-2 times per month 05/20/2019 Risk Assessment: Low Risk Substance Abuse 05/20/2019 Risk Assessment: Denies Substance Abuse Tobacco 01/16/2020 Tobacco Use: 4 or less cigarettes(less Smokeless tobacco use: Never Type: Cigars Started at age: 17.0 Years Stopped at age: 27 Years Smoking Cessation Yes Comment: will smoke a cigar sometimes when drinking wine. - 01/16/2020 09:41 - Case Phoebe [facility] 10/12/2020 Risk Assessment: Low Risk . Physical Examination Pain assessment: Self-reports no pain. Airway: Mallampati classification: II (soft palate, fauces, uvula visible). Distance: Adequate. Mouth: Adequate opening. Neck: Full range of motion. Respiratory: Respirations are non-labored. Cardiovascular: Regular rhythm. Neurologic: Alert, Oriented. Review / Management Results review: No qualifying data available . Plan [place] [employer] (ASA) physical status classification: Class II. Anesthetic Preoperative Plan Anesthesia: General. , discussed the benefits of obstaing from tobacco products. Anesthetic plan, risks, benefits, and alternatives discussed with the patient and/or family. Patient verbalized understanding. Pt agrees with anesthetic plan and accepts all risks including but not limited to; Bleeding, infection(including covid-19), nerve injury, dental injury, eye injury, headache, low blood pressure, serious problems with the heart and lungs, allergic reactions, and .. [facility] Comment on above: Result Comment: Elec tronically Signed By: Ronni MACIAS, Finesse\.br\Date and Time Signed: 10/19/20 15:53 EDT Coding Summary.on 10-18-2020 Coding Summary. CODING DATE: 10/18/2020 FINAL [facility] DSC STATUS: Home (Routine DC) PAYOR: Medical [facility] ADMIT DX: REASON FOR VISIT DX: Z01.812 Encounter for preprocedural laboratory examination FINAL DX: PRINCIPAL: Z01.812 Encounter for preprocedural laboratory examination SECONDARY: PYMT PROC APC STAT DESCRIPTION DOCTOR NAME DATE NOTE: The code number assigned matches the documented diagnosis and / or procedure in the patient's chart. However, the narrative phrase printed from the coding software may appear abbreviated, or result in slightly different terminology. Coded By: Karlie Vargas CphT Date Saved: 10/18/2020 04:36 pm Normal [facility] Consent for Procedure/Surger yon 10-18-2020 Consent for Procedure/Surgery [id number]#1. 00CD:127 Normal [facility] Comment on above: Other Comment: oops History and Physicalon 10-18 History and Physical [id number]. 00CD:127 Normal [facility] Comment on above: Other Comment: oops BUNon 10-12-2020 Urea nitrogen [Mass/Vol] 10 mg/dL Normal 5-21 [facility] Comment on above: Performed By: #### 2 023875, 4571381, 2159803, 02148243, 91007784, 5941859 ####[facility] [address] [place] [address] CBC w/Indiceson 10-12-2020 Erythrocyte distribution width (RBC) [Ratio] 14.3 % High 10.9-14.2 [facility] Comment on above: Performed By: #### 2 291942, 3953169, 8817320, 82578249, 45675463, 0939953 #### [facility] [address] [place] [address] Hematocrit (Bld) [Volume fraction] 35.8 % Normal 34.0-46.0 [facility] Comment on above: Performed By: #### 2 272011, 1249242, 2874977, 07568521, 79474472, 1659082 #### [facility] [address] [place] [address] Hemoglobin (Bld) [Mass/Vol] 12.0 g/dL Normal 12.0-16.0 [facility] Comment on above: Performed By: #### 2 263903, 8591573, 9867775, 31674328, 89281539, 0084612 #### [facility] [address] [place] [address] MCH (RBC) [Entitic mass] 31.5 pg Normal 27.0-34.0 [facility] Comment on above: Performed By: #### 2 253804, 2516834, 8669694, 87981666, 75931285, 9514971 #### [facility] [address] [place] [address] MCHC (RBC) [Mass/Vol] 33.4 g/dL Normal 31.4-36.0 [facility] Comment on above: Performed By: #### 2 284658, 7317518, 3431019, 45467326, 32644277, 9542149 #### [facility] [address] [place] [address] MCV (RBC) [Entitic vol] 94.2 fL Normal 80.0-100.0 [facility] Comment on above: Performed By: #### 2 603821, 5696628, 8559112, 64003806, 43544371, 5987086 #### [facility] [address] [place] [address] Platelet mean volume (Bld) [Entitic vol] 8.4 fL Normal 6.4-10.8 [facility] Comment on above: Performed By: #### 2 199516, 4333266, 8120863, 13141211, 27210892, 9003823 #### [facility] [address] [place] [address] Platelets (Bld) [#/Vol] 262.0 E9/L Normal 150.0-500.0 [facility] Comment on above: Performed By: #### 2 269902, 7696913, 2672694, 93110022, 82252245, 7118606 #### [facility] [address] [place] [address] RBC (Bld) [#/Vol] 3.8 E12/L Low 4.3-5.9 [facility] Comment on above: Performed By: #### 2 250829, 8210651, 7418084, 92726721, 68520187, 7660528 #### [facility] [address] [place] [address] WBC corrected for nucl RBC Auto (Bld) [#/Vol] 8.0 E9/L Normal 4.0-11.0 [facility] Comment on above: Performed By: #### 2 324319, 8438261, 2944933, 99362834, 96325323, 6232339 #### [facility] [address] [place] [address] Consent for Treatmenton 10-01 Consent for Treatment [id number]#1.0 0CD:127 Normal [facility] Creatinineon 10-12-2020 Creatinine [Mass/Vol] 0.7 mg/dL Normal 0.5-1.3 [facility] Comment on above: Performed By: #### 2 329211, 1406549, 2276128, 30822469, 85047187, 5321857 ####[facility] [address] [place] [address] Lyteson 10-12-2020 Anion gap [Moles/Vol] 13 mmol/L Normal 6-16 [facility] Comment on above: Performed By: #### 2 704142, 2534694, 7749903, 02524105, 76829278, 2346731 ####[facility] [address] [place] [address] Chloride [Moles/Vol] 105 mmol/L Normal 101-111 [facility] Comment on above: Performed By: #### 2 980404, 0840465, 0939557, 88413451, 46678867, 6955298 ####[facility] [address] [place] [address] CO2 [Moles/Vol] 24 mmol/L Normal 21-31 [facility] Comment on above: Performed By: #### 2 071035, 2653706, 3677596, 88242972, 35872186, 2887786 ####[facility] [address] [place] [address] Potassium [Moles/Vol] 3.6 mmol/L Normal 3.5-5.3 [facility] Comment on above: Performed By: #### 2 565122, 3634841, 5140371, 42417235, 09421562, 4906605 ####[facility] [address] [place] [address] Sodium [Moles/Vol] 138 mmol/L Normal 135-145 [facility] Comment on above: Performed By: #### 2 414869, 3731785, 6491631, 49427078, 73726196, 4332306 ####[facility] [address] [place] [address] PT & PTTon 10-12-2020 aPTT Coag (PPP) [Time] 25.7 second(s) Normal 25.1-36.5 [facility] Comment on above: Result Comment: Hepa rin therapeutic range (represented by Anti-Factor Xa activity of 0.2 - 0.4 U/mL) corresponds to PTT of 56.6 - 109.0 sec. Performed By: #### 2 083261, 5419462, 2128193, 47461372, 64054916, 5777644 ####[facility] [address] [place] [address] INR Coag (PPP) [Relative time] 1.1 {INR} [facility] Comment on above: Result Comment: INR results are specifically intended to assess patients stabilized on long-term Anticoagulation therapy suggested INR?s ?Less Intensive Anticoagulation? 2.0 ? 3.0 Conventional Range 3.0 ? 4.5 Performed By: #### 2 576034, 7947042, 3220224, 62837800, 33335426, 8325257 ####[facility] [address] [place] [address] PT Coag (PPP) [Time] 12.9 second(s) Normal 10.2-12.9 [facility] Comment on above: Performed By: #### 2 839911, 4996540, 2250083, 42609911, 07310594, 1830784 ####[facility] [address] [place] [address] U BetaHcg Qualon 10-12-2020 HCG.beta subunit (U) [Moles/Vol] Negative Normal [facility] Comment on above: Performed By: #### 2 0844385 ####[facility] [address] [place] [address] eGFRon 10-12-2020 GFR/1.73 sq M predicted among blacks MDRD (S/P/Bld) [Vol rate/Area] mL/min/{1.73_m2} Normal >=59 [facility] Comment on above: Order Comment: Order added by Discern Expert. Result Comment: eGFR is race adjusted. AA=. Performed By: #### 2 525930, 2800431, 7246610, 69815244, 83506479, 1259855 ####[facility] [address] [place] [address] GFR/1.73 sq M predicted among non-blacks MDRD (S/P/Bld) [Vol rate/Area] mL/min/{1.73_m2} Normal >=59 [facility] Comment on above: Order Comment: Order added by Discern Expert. Result Comment: Traveling [employer] Superintendent teresa kidney disease could be indicated at eGFR's of less than 60 mL/min/1.73m2. Kidney failure is indicated at less than 15 mL/min/1.73m2. Performed By: #### 2 336165, 3104207, 8365439, 95368190, 54022136, 0410685 ####[facility] [address] [place] [address] Physician Orderon 10-10-2020 Physician Order [id number]#1. 00CD:127 Normal [facility] Consent for Procedure/Surger yon 10-09-2020 Consent for Procedure/Surgery [id number]#1. 00CD:127 [facility] US Aorta Completeon 01-23-20 20 US Aorta Complete Exam Date/Time: 01/19/2020 09:40 EDT Reason for Exam: Pulse visible in abdominal aorta;Other (please specify) Report IMPRESSION: NEGATIVE STUDY. NO EVIDENCE OF ABDOMINAL AORTIC ANEURYSM. CLINICAL HISTORY: Pulse visible in abdominal aorta. COMMENT: The proximal abdominal aorta measures 1.6 cm in diameter, the mid abdominal aorta 1.5 cm in diameter, and the distal abdominal aorta 1.5 cm in diameter. There is no evidence of abdominal aortic aneurysm. There is no evidence of significant plaque. The right common iliac artery measures 1 cm in diameter and the left common iliac artery measures 0.9 cm in diameter. FINAL REPORT Dictated: 01/23/2020 7:11 am Robbin Watts M.D. Signed (Electronic Signature): 01/23/2020 7:11 am Signed by: Robbin Watts M.D. Transcribed by: DEBORAH Technologist: ARNAV [facility] Coding Summary.on 01-20-2020 Coding Summary. CODING DATE: 01/20/2020 FINAL [facility] STATUS: Home (Routine DC) PAYOR: [facility] DESCRIPTION 5522 Level 2 Imaging without Contrast ADMIT DX: REASON FOR VISIT DX: R09.89 Other specified symptoms and signs involving the circulatory and respiratory systems FINAL DX: PRINCIPAL: R09.89 Other specified symptoms and signs involving the circulatory and respiratory systems SECONDARY: PYMT PROC APC STAT DESCRIPTION DOCTOR NAME DATE NOTE: The code number assigned matches the documented diagnosis and / or procedure in the patient's chart. However, the narrative phrase printed from the coding software may appear abbreviated, or result in slightly different terminology. Coded By: Karlie Vargas CphT Date Saved: 01/20/2020 10:51 am [facility] Consent for Treatmenton 01-01 Consent for Treatment [id number] 0CD:127 [facility] Encounters Encounter Date Encounter Type Care Provider Facility Start: 06-18-2023 End: 06-18-2023 ambulatory FRANSISCA GARCIA Not Available Payers Date Payer Category Payer Unknown [id number] 1990 Unknown [id number] Summary Purpose Family History No Family History Records FoundNo Family History Records FoundNo Family History Records Found Advance Directives No Advanced Directives Records FoundNo Advanced Directives Records FoundNo Advanced Directives Records Found Procedure Findings Note Patient: HEYDI SAINZ Age: 30 years Sex: Female : 1990 Associated Diagnoses: None Author: Finesse Rudolph MD Postoperative Information Post Operative Note: Post Anesthesia Care Unit. Anesthetic utilized: General. Health Status Allergies: Allergic Reactions (All) No Known Allergies Problem list: All Problems Smoker / SNOMED CT 071282892 / Confirmed Added secondary to documentation in Social History. Chronic constipation / SNOMED CT 116144330 / Confirmed Group B streptococcus / SNOMED CT 140842061 / Confirmed BMI 29.0- 29.9,adult / SNOMED CT 93989206 / Confirmed Inactive: Depression / SNOMED CT 15754970 Resolved: Tobacco use during / Patient Care Resolved: Fatigue / SNOMED CT 552822589 Resolved: Pulse visible in abdominal aorta / SNOMED CT 8850727468 Resolved: / SNOMED CT 245814252 Resolved: / SNOMED CT 951656826 Canceled: Vaginal candidiasis / SNOMED CT 024154891 Canceled: Insomnia / SNOMED CT 003015831 Canceled: Allerg (more content not included)... Additional Source Comments INFORMATION SOURCE (unrecogn ized section and content) DATE CREATED AUTHOR 10/29/2020 [facility] DATE CREATED AUTHOR AUTHOR'S ORGANIZ ATION 04/18/2023 [facility] DATE CREATED AUTHOR AUTHOR'S ORGANIZ ATION 06/20/2023 [facility] FOR RECORDS PERTAINING TO PATIENTS WHO ARE OR HAVE BEEN ENROLLED IN A CHEMICAL DEPENDENCY/SUBSTANCEABUSE PROGRAM, SOME INFORMATION MAY BE OMITTED. This clinical summary was aggregated from multiple sources. Caution should be exercised in using it in the provision of clinical care. This summary normalizes information from multiple sources, and as a consequence, information in this document may materially change the coding, format and clinical context of patient data. In addition, data may be omitted in some cases. CLINICAL DECISIONS SHOULD BE BASED ON THE PRIMARY CLINICAL RECORDS. [facility] [employer] [facility] provides no warranty or guarantee of the accuracy or completeness of information in this document.
[2023-09-15 13:10] LABS: Age Gdln ACOG Testing Note (.); HPV Aptima Negative (Negative); IGP, Aptima HPV, rfx 16/18,45 Note (.)
== END 2023-09-09 21:35 | disposition home or self-care (01) ==
LOC: LAB 21:34
PROVIDERS: Visit Provider Obstetrics & Gynecology
DX: Z01.419 Encounter for gynecological examination (general) (routine) without abnormal findings (principal)
CPT/HCPCS: 87624; G0145

== ENCOUNTER 2023-10-19 14:18 | Outpatient (OUT) | payer OTHER, SELFPAY ==
--- OUTSIDE RECORDS SUMMARY | 2023-10-19 14:38 | XMS_ITS | CCD ---
Author Name Unknown Address [address] [place] [address] Organization [facility] Care Team Providers Care Marketing Specialist Name Role Phone FRANSISCA GARCIA Attending Unavailable HIMA GARSIA Attending Unavailable Unavailable Primary Care Provider Unavailabl e Medications Current Medications Medication Drug Class(es) Dates Sig (Normalized) Sig (Original) 24 hr metFORMIN hydrochloride 500 mg extended release oral tablet (5 sources) Biguanide Start: 04-07-2023 End: 09-08-2024 take 1 tablet by mouth every twenty-four hours at mealtime metFORMIN XR (Glucophage-XR) 500 MG 24 hr tablet Indications: Weight gain Take 1 tablet (500 mg) by mouth in the evening. Take with meals Do not crush, chew, or split. 30 tablet 11 09/09/2023 09/08/2024 Active Completed/Discontinued Medications Medication Drug Class(es) Dates Sig (Normalized) Sig (Original) [id number] 200 actuat albuterol 0.09 mg/actuat metered dose inhaler (2 sources) beta2-Adrenergic Agonist Start: 07-11-2022 End: 09-09-2023 take 2 puff(s) by inhalation every four hours as needed albuterol HFA 90 mcg/act inhaler INHALE 2 PUFFS INTO LUNGS EVERY 4 HOURS NEEDED 0 07/11/2022 09/09/2023 Discontinued (Other) tretinoin 0.5 mg/ml topical cream (2 sources) Retinoid End: 09-09-2023 tretinoin (Retin-A) 0.05 % cream apply to face topically qhs for 30 day(s) 0 09/09/2023 Discontinued (Other) Problems Problem Classification Problem Date Documented Da te Episodic/Chronic Other nutritional; endocrine; and metabolic disorders (2 sources) Weight gain; Translations: [Abnormal weight gain] 09-09-2023 Episodic Results Test Name Value Interpretation Reference Range Facility IGP,APTIMA HPV,AGE GDLNon AGE GDLN ACOG TESTING Note . [facility] Comment on above: TESTS RESULT FLAG UN ITS REF RANGE LAB Clinician Provided Cytology Information Source.............Cervix;Endocervix No. of containers..01 ThinPrep Vial Age Algo ACOG Mora... FLAG LEGEND: L-Low Normal,H-High Normal,LL-Alert Low,HH-Alert High <-Panic Low,>-Panic High,A-Abnormal,AA-Critical Abnormal Performed at: 01 =[address] [address] Isabella Galan MD, HPV APTIMA Negative Negative [facility] Comment on above: This nucleic acid am plification test detects fourteen high- risk HPV types (16,18,31,33,35,39,45,51,52,56,58,59,66,68) without differentiation. Performed at: =[address] [id number] Double Needle Stitcher: Isabella Galan MD, Phone: [phone] Performed at: [address] [id number] Double Needle Stitcher: Isabella Galan MD, Phone: [phone] IGP, APTIMA HPV, RFX 16/18,45 Note . [facility] Comment on above: TESTS RESULT FLAG UN ITS REF RANGE LAB DIAGNOSIS: 02 NEGATIVE FOR INTRAEPITHELIAL LESION OR MALIGNANCY. Specimen adequacy: 02 Satisfactory for evaluation. Endocervical and/or squamous metaplastic cells (endocervical component) are present. Performed by: 02 Heike Edwards, Programmer Numerical Control ([facility]) . 02 Note: Note 02 The Pap smear is a screening test designed to aid in the detection of premalignant and malignant conditions of the uterine cervix. It is not a diagnostic procedure and should not be used as the sole means of detecting cervical cancer. Both false-positive and false-negative reports do occur. Test Methodology: Note 02 This liquid based ThinPrep(R) pap test was screened with the use of an image guided system. HPV Genotype Reflex Note 02 Criteria not met, HPV Genotype not performed. FLAG LEGEND: L-Low Normal,H-High Normal,LL-Alert Low,HH-Alert High <-Panic Low,>-Panic High,A-Abnormal,AA-Critical Abnormal Performed at: [address] [address] Isabella Galan MD, BRUSH-SPATULA CERVIX ENDOCERVIX [facility] Comprehensive Metabolic Pane jackie 04-16-2023 Albumin [Mass/Vol] 4.7 g/dL Critically high 3.5-4.6 [facility] Comment on above: Performed By: #### C MP #### [facility] [address] [place] [address] ALP [Catalytic activity/Vol] 41 U/L Normal 40-130 [facility] Comment on above: Performed By: #### C MP #### [facility] [address] [place] [address] ALT [Catalytic activity/Vol] 9 U/L Normal 0-33 [facility] Comment on above: Performed By: #### C MP #### [facility] [address] [place] [address] Anion gap [Moles/Vol] 12 mmol/L Normal 9-15 [facility] Comment on above: Performed By: #### C MP #### [facility] [address] [place] [address] AST [Catalytic activity/Vol] 14 U/L Normal 0-35 [facility] Comment on above: Performed By: #### C MP #### [facility] [address] [place] [address] Bilirubin [Mass/Vol] 0.5 mg/dL Normal 0.2-0.7 [facility] Comment on above: Performed By: #### C MP #### [facility] [address] [place] [address] Calcium [Mass/Vol] 9.2 mg/dL Normal 8.5-9.9 [facility] Comment on above: Performed By: #### C MP #### [facility] [address] [place] [address] Chloride [Moles/Vol] 104 mmol/L Normal 95-107 [facility] Comment on above: Performed By: #### C MP #### [facility] [address] [place] [address] CO2 [Moles/Vol] 24 mmol/L Normal 20-31 [facility] Comment on above: Performed By: #### C MP #### [facility] [address] [place] [address] Creatinine [Mass/Vol] 0.71 mg/dL Normal 0.50-0.90 [facility] Comment on above: Performed By: #### C MP #### [facility] [address] [place] [address] GFR >60.0 Normal >60 [facility] Comment on above: Result Comment: Glenys [...] secretion. Performed By: #### C MP #### [facility] [address] [place] [address] Globulin (S) [Mass/Vol] 2.3 g/dL Normal 2.3-3.5 [facility] Comment on above: Performed By: #### C MP #### [facility] [address] [place] [address] Glucose [Mass/Vol] 102 mg/dL Critically high 70-99 [facility] Comment on above: Performed By: #### C MP #### [facility] [address] [place] [address] Potassium [Moles/Vol] 4.4 mmol/L Normal 3.4-4.9 [facility] Comment on above: Performed By: #### C MP #### [facility] [address] [place] [address] Protein [Mass/Vol] 7.0 g/dL Normal 6.3-8.0 [facility] Comment on above: Performed By: #### C MP #### [facility] [address] [place] [address] Sodium [Moles/Vol] 140 mmol/L Normal 135-144 [facility] Comment on above: Performed By: #### C MP #### [facility] [address] [place] [address] Urea nitrogen [Mass/Vol] 14 mg/dL Normal 6-20 [facility] Comment on above: Performed By: #### C MP #### [facility] [address] [place] [address] Lipid Panelon 04-16-2023 Cholesterol [Mass/Vol] 193 mg/dL Normal 0-199 [facility] Comment on above: Result Comment: ATP III Cholesterol classification is Desirable. Performed By: #### L IPID #### [facility] [address] [place] [address] Cholesterol in HDL [Mass/Vol] 67 mg/dL Critically high 40-59 [facility] Comment on above: Result Comment: ATP [...] CHD Performed By: #### L IPID #### [facility] [address] [place] [address] Cholesterol in LDL [Mass/Vol] 115 mg/dL Normal 0-129 [facility] Comment on above: Result Comment: ATP III LDL Classification is Near Optimal. Performed By: #### L IPID #### [facility] [address] [place] [address] Triglyceride [Mass/Vol] 54 mg/dL Normal 0-150 [facility] Comment on above: Result Comment: ATP III Triglycerides Classification is Normal. Performed By: #### L IPID #### [facility] [address] [place] [address] Comprehensive Metabolic Pane jackie 05-27-2022 Albumin [Mass/Vol] 4.7 g/dL Critically high 3.5-4.6 [facility] Comment on above: Performed By: #### C MP #### [facility] [address] [place] [address] ALP [Catalytic activity/Vol] 37 U/L Low 40-130 [facility] Comment on above: Performed By: #### C MP #### [facility] [address] [place] [address] ALT [Catalytic activity/Vol] 7 U/L Normal 0-33 [facility] Comment on above: Performed By: #### C MP #### [facility] [address] [place] [address] Anion gap [Moles/Vol] 15 mmol/L Normal 9-15 [facility] Comment on above: Performed By: #### C MP #### [facility] [address] [place] [address] AST [Catalytic activity/Vol] 13 U/L Normal 0-35 [facility] Comment on above: Performed By: #### C MP #### [facility] [address] [place] [address] Bilirubin [Mass/Vol] mg/dL Normal 0.2-0.7 [facility] Comment on above: Performed By: #### C MP #### [facility] [address] [place] [address] Calcium [Mass/Vol] 9.4 mg/dL Normal 8.5-9.9 [facility] Comment on above: Performed By: #### C MP #### [facility] [address] [place] [address] Chloride [Moles/Vol] 103 mmol/L Normal 95-107 [facility] Comment on above: Performed By: #### C MP #### [facility] [address] [place] [address] CO2 [Moles/Vol] 24 mmol/L Normal 20-31 [facility] Comment on above: Performed By: #### C MP #### [facility] [address] [place] [address] Creatinine [Mass/Vol] 0.79 mg/dL Normal 0.50-0.90 [facility] Comment on above: Performed By: #### C MP #### [facility] [address] [place] [address] GFR >60.0 Normal >60 [facility] Comment on above: Result Comment: Pedi [...] secretion. Performed By: #### C MP #### [facility] [address] [place] [address] Globulin (S) [Mass/Vol] 2.5 g/dL Normal 2.3-3.5 [facility] Comment on above: Performed By: #### C MP #### [facility] [address] [place] [address] Glucose [Mass/Vol] 87 mg/dL Normal 70-99 [facility] Comment on above: Performed By: #### C MP #### [facility] [address] [place] [address] Potassium [Moles/Vol] 4.3 mmol/L Normal 3.4-4.9 [facility] Comment on above: Performed By: #### C MP #### [facility] [address] [place] [address] Protein [Mass/Vol] 7.2 g/dL Normal 6.3-8.0 [facility] Comment on above: Performed By: #### C MP #### [facility] [address] [place] [address] Sodium [Moles/Vol] 142 mmol/L Normal 135-144 [facility] Comment on above: Performed By: #### C MP #### [facility] [address] [place] [address] Urea nitrogen [Mass/Vol] 11 mg/dL Normal 6-20 [facility] Comment on above: Performed By: #### C MP #### [facility] [address] [place] [address] Lipid Panelon 05-27-2022 Cholesterol [Mass/Vol] 182 mg/dL Normal 0-199 [facility] Comment on above: Result Comment: ATP III Cholesterol classification is Desirable. Performed By: #### L IPID #### [facility] [address] [place] [address] Cholesterol in HDL [Mass/Vol] 52 mg/dL Normal 40-59 [facility] Comment on above: Result Comment: ATP [...] CHD Performed By: #### L IPID #### [facility] [address] [place] [address] Cholesterol in LDL [Mass/Vol] 117 mg/dL Normal 0-129 [facility] Comment on above: Result Comment: ATP III LDL Classification is Near Optimal. Performed By: #### L IPID #### [facility] [address] [place] [address] Triglyceride [Mass/Vol] 65 mg/dL Normal 0-150 [facility] Comment on above: Result Comment: ATP III Triglycerides Classification is Normal. Performed By: #### L IPID #### [facility] [address] [place] [address] IntraOperative Documentson 0 10-29-2020 IntraOperative Documents [id number]#1. 00CD:127 Normal [facility] Postoperative Documentson Postoperative Documents [id number]#1. 00CD:127 Normal [facility] Coding Summary.on 10-24-2020 Coding Summary. CODING DATE: 10/24/2020 FINAL [facility] STATUS: Home (Routine DC) PAYOR: [facility] DESCRIPTION 5361 Level 1 Laparoscopy and Related Services ADMIT DX: REASON FOR VISIT DX: Z30.2 Encounter for sterilization FINAL DX: PRINCIPAL: Z30.2 Encounter for sterilization SECONDARY: Z87.891 Personal history of nicotine dependence PYMT PROC APC STAT DESCRIPTION DOCTOR NAME DATE 11305 5361 J1 Laparoscopy, surgical; Zeeshan Ta MD 10/19/2020 with removal of adnexal structures (partial or total oophorectomy and/or salpingectomy) 12185 Anesthesia for Finesse Rudolph MD 10/19/2020 intraperitoneal procedures in lower abdomen including laparoscopy; not otherwise specified NOTE: The code number assigned matches the documented diagnosis and / or procedure in the patient's chart. However, the narrative phrase printed from the coding software may appear abbreviated, or result in slightly different terminology. Revised Coded By: Elina Arreola Revised Date Saved: 10/24/2020 03:12 pm Normal [facility] Main OR Intraoperative Recor don 10-23-2020 Main OR Intraoperative Record IntraOp Document Type FT Summary Primary Physician: Zeeshan Ta MD Finalized Date/Time: 10/23/20 13:49:53 Pt. Name: HEYDI SAINZ/Sex: 1990 Female Med Rec #: [id number] Physician: Zeeshan Ta MD Financial #: [id number] Pt. Type: A Room/Bed: Admit/Disch: 10/19/20 11:05:15 - 10/19/20 16:15:00 Institution: Case Times FT Entry 1 Patient Times In Room 10/19/20 12:59:00 Out Room 10/19/20 13:49:00 Procedure Times Start 10/19/20 13:16:00 Stop 10/19/20 13:45:00 Anesthesia Times Start 10/19/20 12:59:00 Stop 10/19/20 13:49:00 Last Modified By: Isaías ASHRAF, Stuart Quinn 10/19/20 13:49:17 General Comments: 10/23/20 Chart open to review and send ynes/ Cheyenne Montaño RN Case Attendance FT Entry 1 Entry 2 Entry 3 Case Attendee Jeremie ROJAS, Laurence Ta MD, Zeeshan Metz RN, Stuart Quinn Role Performed Anesthesiologist Surgeon - Primary Food Beverage Manager - Primary Product Manufacturing Professional Time In 10/19/20 12:59:00 10/19/20 13:13:00 10/19/20 12:59:00 Time Out 10/19/20 13:49:00 10/19/20 13:39:00 10/19/20 13:49:00 Procedure TUBAL LIGATION TUBAL LIGATION TUBAL LIGATION LAPAROSCOPIC(Bilateral ) LAPAROSCOPIC(Bilateral ) LAPAROSCOPIC(Bilateral ) Comments , anesthesia pathology supervisor Last Modified By: Isaías RN, Stuart Metz RN, Stuart Metz RN, Stuart Quinn 10/19/20 13:53:59 10/19/20 13:53:59 10/19/20 13:53:59 Entry 4 Entry 5 Entry 6 Case Attendee Jarred RN, Dallas Tong ROUTE SUPERVISOR, Tonya Montaño RN, CNOR, Yani Role Performed Food Beverage Manager - Primary Scrub - Primary WIRE WINDING MACHINE TENDER Time In 10/19/20 12:59:00 10/19/20 12:59:00 10/19/20 12:59:00 Time Out 10/19/20 13:49:00 10/19/20 13:49:00 10/19/20 13:49:00 Procedure TUBAL LIGATION TUBAL LIGATION TUBAL LIGATION LAPAROSCOPIC(Bilateral ) LAPAROSCOPIC(Bilateral ) LAPAROSCOPIC(Bilateral ) Comments in orientation Last Modified By: Isaías ASHRAF, Stuart Metz RN, Stuart Stephenson RN 10/19/20 13:53:59 10/19/20 13:53:59 10/19/20 13:53:59 General Comments: ARIEL DENNISON JOSE SURGICAL TECHNOLOGY STUDENT, OBSERVING SURGICAL PROCEDURE. Perioperative [...] Laurence Ash Time Out Complete 10/19/20 13:15:00 Participants Keyon Lucero MD, Zeeshan Hernandez, Isaías ASHRAF, Jarred Levin RN, Alycia Shrestha CST, Sabra [...] BILATERAL SALPINGECTOMY Primary Procedure Yes Primary Surgeon Keyon MACIAS, Zeeshan Hernandez Start 10/19/20 13:16:00 Stop 10/19/20 13:45:00 Anesthesia Type General Surgical Service Obstetric [...] and tissue Entry 1 Skin Integrity Intact, [place], Warm, and Skin Abnormality No Dry Outcomes [...] Met? Yes Yes Yes Last Modified By: Stuart Metz RN, RN, Stuart Stephenson RN 10/19/20 13:49:11 10/19/20 [...] Dallas Cisneros, Jarred ASHRAF, Dallas Cisneros, Alycia ROUTE SUPERVISOR, Tonya Tong ROUTE SUPERVISOR, Tonya Randle Outcomes Met? Yes Yes Last [...] Methods Not Indicated Not Indicated Site By Isaías ASHRAF, Stuart Stern RN, Dallas Cisneros Outcomes Met? Yes Yes Last Modified By: Isaías ASHRAF, Stuart Stephenson RN 10/19/20 13:13:55 10/19/20 13:13:55 Post-Care Text: The [...] Cisneros Patient Status Stable Skin. Condition Intact, [place], Warm, and Description SAME PREOPERATIVE Dry CONDITION [...] VERBAL AND WRITTEN REPORT GIVEN TO PACU NURSE. ANDRIY LÓPEZ Dressing/Packing FT Pre-Care Text: Administers care to wound sites Entry 1 Type Dressing Items BANDAID SHEER 1 X 3 [16508][F] Site and Details ABDOMEN- MASTISOL, Outcomes Met? [...] safely administered during the perioperative period For Sebastian-Blaine please see scanned medication reconcilliation form for medications used at the field during the procedure. Urinary Catheter Pre-Care Text: Patient is prepped using sterile technique. Entry 1 Urinary Catheter CATH URETHRAL STRAIGHT Present Upon Arrival No Inserted 16FR [[id number]][F] Insertion Date/Time 10/19/20 13:15:00 Insertion Site Uretheral [...] BLANKET MISTRAL AIR Quantity 1 Aid TORSO [[id number]][F] Fluid/[place] [facility] Mistral warming system Setting 43 C/ [...] Out Complete 10/19/20 13:38:00 Last Modified By: Stuart Metz RN 10/19/20 13:38:47 Case Comments Finalized By: ANGEL Montaño RN, Lou Ann Document Signatures Signed By: Stuart Metz RN 10/19/20 13:54 Stuart Metz RN 10/19/20 13:54 ANGEL Montaño RN, Lou Ann 10/23/20 13:49 [facility] Consent for Anesthesiaon Consent for Anesthesia [id number]#1.0 0CD:127 [facility] Discharge Instructionson Discharge Instructions [id number]#1.0 0CD:127 [facility] IntraOperative Documentson 0 10-22-2020 IntraOperative Documents [id number]#1.0 0CD:127 [facility] IntraOperative Documents [id number]#1.0 0CD:127 [facility] Physician Orderon 10-22-2020 Physician Order [id number]#1.0 0CD:127 [facility] Preoperative Documentson Preoperative Documents [id number]#1.0 0CD:127 [facility] Operative Reporton Operative Report Date of Surgery: [...] in stable condition. Zeeshan Ta MD, FACOG lkr Dictated: 10/19/2020 #[id number] Typed: 10/19/2020 #[id number] cc: Zeeshan Ta MD, MADELEINE [facility] Comment on above: Result Comment: Elec tronically Signed By: Zeeshan Ta MD\.br\Date and Time Signed: 10/20/20 10:50 EDT Consent for Treatmenton 10-01 Consent for Treatment [id number]#1.0 0CD:127 [facility] History and Physicalon 10-19 History and Physical HOSPITAL REGULATIONS: ALL Positive Important Negative Findings Shall Be [...] allergies. Medications: No medicines. Illnesses: None. Surgeries: [place] teeth. FAMILY HISTORY: Positive for hypertension. PSYCHOSOCIAL [...] Zeeshan Ta MD, FACOG gls Dictated: 10/18/2020 #[id number] Typed 10/19/2020 #[id number] cc: Zeeshan Ta MD, FACOG Normal [facility] Comment on above: Result Comment: Elec tronically Signed By: Zeeshan Ta MD\.br\Date and Time Signed: 10/19/20 09:57 EDT Inpatient Patient Summaryon 10-19-2020 Inpatient Patient Summary [place] [id number] [facility] Clinical Discharge Instructions PERSON INFORMATION Name: HEYDI SAINZ [facility]#:[id number] PHYSICIANS Admitting Physician: Zeeshan Ta MD Attending Physician: Zeeshan Ta MD PCP: Karissa CALDERON MD Discharge Diagnosis: Encounter for sterilization; Status post bilateral salpingectomy Comment: PATIENT EDUCATION INFORMATION Instructions: CLOTH DESIZING RANGE OPERATOR CHIEF - Post D&C, Hysteroscopy, LEEP or Essure/Laparoscopy (CUSTOM); Post Op Patient Instructions - FT (CUSTOM) Medication Leaflets: Follow up: With: Address: When: Zeeshan Ta [address], [place] [address] Business (1) Within 2 weeks Comments: Call for any problems. Call for followup appointment MEDICATION LIST New Medications [facility], [address] [id number], [phone] acetaminophen-oxycodon e (Percocet 325 mg-5 mg Tab) 1 Tablets By Mouth every 6 hours as needed for pain for 2 Days. Refills: 0. Medications to Continue with No Changes Other Medications multivitamin (Multi Vitamins oral tablet) 1 Tablets By Mouth every day as needed Prophylaxis. Comment: Sanjeev [facility] Main OR PACU I Recordon 10-01 Main OR PACU I Record PACU Phase I Document Type FT Summary Primary Physician: Zeeshan Ta MD Finalized Date/Time: 10/19/20 15:20:31 Pt. Name: HEYDI SAINZ./Sex: 1990 Female Med Rec #: [id number] Physician: Zeeshan Ta MD Financial #: [id number] Pt. Type: A Room/Bed: [place] [address] Admit/Disch: 10/19/20 11:05:15 - Institution: Case Times [...] Signed By: Lindy Garcia RN 10/19/20 15:20 Normal [facility] Main OR PACU II Recordon Main OR PACU II Record PACU Phase II Document Type FT Summary Primary Physician: Zeeshan Ta MD Finalized Date/Time: 10/19/20 17:29:50 Pt. Name: HEYDI SAINZ/Sex: 1990 Female Med Rec #: [id number] Physician: Zeeshan Ta MD Financial #: [id number] Pt. Type: A Room/Bed: [place] [address] Admit/Disch: 10/19/20 11:05:15 - Institution: Case Times [...] By: Marti Wallace RN 10/19/20 17:29 Normal [facility] Main OR Preoperative Recordo n 10-19-2020 Main OR Preoperative Record PreOp Document Type FT Summary Primary Physician: Zeeshan Ta MD Finalized Date/Time: 10/19/20 13:00:13 Pt. Name: HEYDI SAINZ/Sex: 1990 Female Med Rec #: [id number] Physician: Zeeshan Ta MD Financial #: [id number] Pt. Type: A Room/Bed: [facility] Admit/Disch: 10/19/20 11:05:15 - Institution: Case [...] By: Stuart Metz RN 10/19/20 13:00 Normal [facility] Monitor Recordon 10-19-2020 Monitor Record [id number]#1. 00CD:127 Normal [facility] Outpatient Surgery Discharge Instructionon 10-19-2020 Outpatient Surgery Discharge Instruction [place] [id number] Patient Discharge Instructions PERSON INFORMATION Name: HEYDI SAINZ Alexandra Date of : 1990 Current Date: 10/19/2020 [...] THE NEAREST EMERGENCY ROOM OR CALL 911 I, HEYDI SAINZ, have received the attached patient education materials/instructions and have verbalized understanding: May we do a follow up call? Yes No I was present when discharge instructions were given Patient Signature Date Clinican/Nurse Signature ___ Date Follow up: With: Address: When: Zeeshan Sifuentes [address], [place] [address], [place] [address] Business (1) Within 2 weeks Comments: Call for any problems. Call for followup appointment Pharmacy Information: Other: [facility] You may receive a survey from [email or web address] asking you to rate your care experience. Your feedback is important and will help us understand what we do well and how we can improve the quality of care we provide to you, your loved ones and our community. It?s an honor to serve you. Thank you for choosing [facility] HERE ARE THE MEDICATION CHANGES THAT OCCURRED DURING YOUR HOSPITAL STAY New Medications [facility], [address] [address] [place] [id number], [phone] acetaminophen-oxycodon e (Percocet 325 mg-5 mg Tab) [...] cramps. PLEASE CALL FOR ANY PROBLEMS Normal [facility] Outside Recordson 10-19-2020 Outside Records [id number]#1. 00CD:127 Normal [facility] Patient Education - Texton 0 10-19-2020 [...] cramps. PLEASE CALL FOR ANY PROBLEMS Normal [facility] Progress Note-Physicianon Progress Note-Physician Patient: HEYDI SAINZ Age: 30 years Sex: [...] list: All Problems Smoker / SNOMED CT 328923747 / Confirmed Added secondary to documentation in Social History. Chronic constipation / SNOMED CT 853272010 / Confirmed Group B streptococcus / SNOMED CT 061690383 / Confirmed BMI 29.0-29.9,adult / SNOMED CT 51692889 / Confirmed Inactive: Depression / SNOMED CT 66691401 Resolved: Tobacco use during / Patient Care Resolved: Fatigue / SNOMED CT 089774912 Resolved: Pulse visible in abdominal aorta / SNOMED CT 4259983664 Resolved: / SNOMED CT 805536291 Resolved: / SNOMED CT 379653359 Canceled: Vaginal candidiasis / SNOMED CT 136974032 Canceled: Insomnia / SNOMED CT 541737952 Canceled: Allergic contact dermatitis / SNOMED CT 370959209 Canceled: Abnormal weight loss / SNOMED CT 702927430 Canceled: Peripheral edema / SNOMED CT 787975019 Histories Past Medical History: Resolved (519145770): Onset on 11/01/2014 at 24 years. Resolved on 06/24/2015 at 25 years. Tobacco use during : Resolved on 06/02/2011 at 21 years. Fatigue (604805096): Resolved. Pulse visible in abdominal aorta (5338893014): Resolved. Procedure history: Esophagogastroduodenos copy (548737995) on 03/29/2012 at 22 Years. Extraction of impacted wisdom teeth (535609164). Social History Social & Psychosocial Habits Alcohol [...] - 01/16/2020 09:41 - Case Phoebe MOHR Arlene 10/12/2020 Risk Assessment: Low Risk . Physical Examination Pain assessment: Self-reports no pain. Airway: Mallampati classification: II (soft palate, fauces, uvula visible). Distance: Adequate. Mouth: Adequate opening. Neck: Full range of motion. Respiratory: Respirations are non-labored. Cardiovascular: Regular rhythm. Neurologic: Alert, Oriented. Review / Management Results review: No qualifying data available . Plan [place] [employer] (ASA) physical status classification: [...] heart and lungs, allergic reactions, and .. [facility] Comment on above: Result Comment: Elec tronically Signed By: Ronni MACIAS, Finesse\.br\Date and Time Signed: 10/19/20 15:53 EDT Coding Summary.on 10-18-2020 Coding Summary. CODING DATE: 10/18/2020 FINAL [facility] DSC STATUS: Home (Routine DC) PAYOR: [facility] [place] ADMIT DX: REASON FOR VISIT DX: Z01.812 [...] Vargas CphT Date Saved: 10/18/2020 04:36 pm [facility] Consent for Procedure/Surger yon 10-18-2020 Consent for Procedure/Surgery [id number]. 00CD:127 [facility] Comment on above: Other Comment: oops History and Physicalon 10-18 History and Physical [id number]#1. 00CD:127 [facility] Comment on above: Other Comment: oops BUNon 10-12-2020 Urea nitrogen [Mass/Vol] 10 mg/dL Normal 5-21 [facility] Comment on above: Performed By: #### 2 508692, 0832388, 6868443, 87394211, 87191549, 9399484 ####[facility] [address] [place] [address] CBC w/Indiceson 10-12-2020 Erythrocyte distribution width (RBC) [Ratio] 14.3 % High 10.9-14.2 [facility] Comment on above: Performed By: #### 2 405296, 1795298, 8032632, 57791755, 42911754, 9923410 #### [facility] [address] [place] [address] Hematocrit (Bld) [Volume fraction] 35.8 % Normal 34.0-46.0 [facility] Comment on above: Performed By: #### 2 696109, 2059201, 2003717, 97042107, 12427153, 5572553 #### [facility] [address] [place] [address] Hemoglobin (Bld) [Mass/Vol] 12.0 g/dL Normal 12.0-16.0 [facility] Comment on above: Performed By: #### 2 606515, 8758528, 0768849, 11309978, 10660424, 3801600 #### [facility] [address] [place] [address] MCH (RBC) [Entitic mass] 31.5 pg Normal 27.0-34.0 [facility] Comment on above: Performed By: #### 2 809690, 0855244, 9857100, 62896217, 96847885, 0667354 #### [facility] [address] [place] [address] MCHC (RBC) [Mass/Vol] 33.4 g/dL Normal 31.4-36.0 [facility] Comment on above: Performed By: #### 2 913055, 1161508, 5502849, 17022211, 54296937, 3295562 #### [facility] [address] [place] [address] MCV (RBC) [Entitic vol] 94.2 fL Normal 80.0-100.0 [facility] Comment on above: Performed By: #### 2 021695, 1073375, 9299337, 44868778, 49448813, 9841519 #### [facility] [address] [place] [address] Platelet mean volume (Bld) [Entitic vol] 8.4 fL Normal 6.4-10.8 [facility] Comment on above: Performed By: #### 2 759710, 6886393, 5331987, 10740652, 88090153, 7237413 #### [facility] [address] [place] [address] Platelets (Bld) [#/Vol] 262.0 E9/L Normal 150.0-500.0 [facility] Comment on above: Performed By: #### 2 061137, 4130859, 9142910, 36987956, 52962632, 8590934 #### [facility] [address] [place] [address] RBC (Bld) [#/Vol] 3.8 E12/L Low 4.3-5.9 [facility] Comment on above: Performed By: #### 2 028184, 1668787, 7206350, 73522314, 41329825, 3125672 #### [facility] [address] [place] [address] WBC corrected for nucl RBC Auto (Bld) [#/Vol] 8.0 E9/L Normal 4.0-11.0 [facility] Comment on above: Performed By: #### 2 478752, 1574517, 4220396, 84946946, 38584614, 6118146 #### [facility] [address] [place] [address] Consent for Treatmenton 10-01 Consent for Treatment [id number]#1.0 0CD:127 Normal [facility] Creatinineon 10-12-2020 Creatinine [Mass/Vol] 0.7 mg/dL Normal 0.5-1.3 [facility] Comment on above: Performed By: #### 2 547253, 7568177, 2973923, 93993797, 46716037, 1352214 ####[facility] [address] [place] [address] Lyteson 10-12-2020 Anion gap [Moles/Vol] 13 mmol/L Normal 6-16 [facility] Comment on above: Performed By: #### 2 392005, 7194863, 0115398, 31533660, 12742762, 7536312 ####[facility] [address] [place] [address] Chloride [Moles/Vol] 105 mmol/L Normal 101-111 [facility] Comment on above: Performed By: #### 2 773236, 2444574, 5395153, 21023893, 01510939, 8093177 ####[facility] [address] [place] [place] [address] CO2 [Moles/Vol] 24 mmol/L Normal 21-31 [facility] Comment on above: Performed By: #### 2 334867, 8634262, 5849565, 02952965, 87698964, 7936462 ####[facility] [address] [place] [address] Potassium [Moles/Vol] 3.6 mmol/L Normal 3.5-5.3 [facility] Comment on above: Performed By: #### 2 597291, 8638213, 4646695, 02455436, 77122475, 3133006 ####[facility] [address] [place] [address] Sodium [Moles/Vol] 138 mmol/L Normal 135-145 [facility] Comment on above: Performed By: #### 2 891747, 8479972, 4239985, 45204303, 96339741, 7719759 ####[facility] [address] [place] [address] PT & PTTon 10-12-2020 aPTT Coag (PPP) [Time] 25.7 second(s) Normal 25.1-36.5 [facility] Comment on above: Result Comment: Hepa rin therapeutic range (represented by Anti-Factor Xa activity of 0.2 - 0.4 U/mL) corresponds to PTT of 56.6 - 109.0 sec. Performed By: #### 2 989081, 5944591, 3310889, 43348635, 43361117, 2471435 ####[facility] [address] [place] [address] INR Coag (PPP) [Relative time] 1.1 {INR} [facility] Comment on above: Result Comment: INR results are specifically intended to assess patients stabilized on long-term Anticoagulation therapy suggested INR?s ?Less Intensive Anticoagulation? 2.0 ? 3.0 Conventional Range 3.0 ? 4.5 Performed By: #### 2 919996, 3260174, 0524264, 96972222, 34375266, 2015224 ####[facility] [address] [place] [address] PT Coag (PPP) [Time] 12.9 second(s) Normal 10.2-12.9 [facility] Comment on above: Performed By: #### 2 002101, 8825507, 8494195, 38628087, 25075160, 0995225 ####[facility] [address] [place] [address] U BetaHcg Qualon 10-12-2020 HCG.beta subunit (U) [Moles/Vol] Negative Normal [facility] Comment on above: Performed By: #### 2 1834144 ####[facility] [address] [place] [address] eGFRon 10-12-2020 GFR/1.73 sq M predicted among blacks MDRD (S/P/Bld) [Vol rate/Area] mL/min/{1.73_m2} Normal >=59 [facility] Comment on above: Order Comment: Order added by Discern Expert. Result Comment: eGFR is race adjusted. AA=. Performed By: #### 2 861789, 2319630, 0124691, 73710038, 33586248, 2609660 ####[facility] [address] [place] [address] GFR/1.73 sq M predicted among non-blacks MDRD (S/P/Bld) [Vol rate/Area] mL/min/{1.73_m2} Normal >=59 [facility] Comment on above: Order Comment: Order added by Discern Expert. Result Comment: Field Secretary teresa kidney disease could be indicated at eGFR's of less than 60 mL/min/1.73m2. Kidney failure is indicated at less than 15 mL/min/1.73m2. Performed By: #### 2 346977, 2472340, 3306965, 92353494, 11523278, 6059320 ####[facility] [address] [place] [address] Physician Orderon 10-10-2020 Physician Order [id number]#1. 00CD:127 Normal [facility] Consent for Procedure/Surger yon 10-09-2020 Consent for Procedure/Surgery [id number]#1. 00CD:127 Normal [facility] US Aorta Completeon 01-23-20 US Aorta Complete Exam Date/Time: 01/19/2020 09:40 [...] Watts M.D. Transcribed by: DEBORAH Technologist: ARNAV [facility] Coding Summary.on 01-20-2020 Coding Summary. CODING DATE: 01/20/2020 FINAL [facility] STATUS: Home (Routine DC) PAYOR: [facility] [place] [facility] DESCRIPTION 5522 Level 2 Imaging without [...] Vargas CphT Date Saved: 01/20/2020 10:51 am [facility] Consent for Treatmenton 01-01 Consent for Treatment [id number] 0CD:127 [facility] Vital Signs Date Time Vital Sign Value Performing Clinician Janey manrique 09-09-2023 13:09-0500 Body mass index (BMI) [Ratio] 30.92 kg/m2 Hima Ady DO Work Phone: [facility] 09-09-2023 13:09-0500 Body weight 94.98 kg Hima Ady DO Work Phone: [facility] 09-09-2023 13:09-0500 Diastolic blood pressure 70 mm[Hg] Hima Ady DO Work Phone: [facility] 09-09-2023 13:09-0500 Systolic blood pressure 116 mm[Hg] Hima Ady DO Work Phone: [facility] Healthcare Encounters Encounter Date Encounter Type Care Provider Facility Start: 09-09-2023 End: 09-09-2023 ambulatory HIMA ADY Not Available Start: 09-09-2023 Clinisync Result Encounter Hima Garsia DO Work Phone: [facility] Unsolicited Start: 09-09-2023 Clinisync Result Encounter Hima Brancho DO Work Phone: [facility] External Department Unsolicited Start: 09-09-2023 End: 09-09-2023 Patient encounter procedure Hima Brancho DO Work Phone: [facility] Work Phone: Start: 09-09-2023 End: 09-09-2023 Periodic preventive med est patient 18-39 yrs Hima Brancho DO Work Phone: [facility] Comment on above: Well woman exam with routine gynecological exam; Weight gain Start: 06-18-2023 End: 06-18-2023 ambulatory FRANSISCA GARCIA Not Available Procedures Date Procedure Procedure Detail Performing Clinician Start: 09-09-2023 IGP,APTIMA HPV,AGE GDLN Hima Brancho DO Work Phone: Plan of Treatment Date Care Activity Detail Author Start: 10-06-2023 End: 10-06-2023 Patient encounter procedure 10/06/2023 2:50 PM EST Consult [facility] [address] [place] [address] Hima Garsia, DO [address] [place] [address] [facility] Cytology Cervical or vaginal smear or scraping study Pap Smear Pathology and Cytology Routine Well woman exam with routine gynecological exam Ordered: 09/09/2023 [facility] Work Phone: Comment on above: Ordered: 09/09/2023 Human papilloma viru s DNA [Presence] in Unspecified specimen by Probe with amplification HPV DNA probe, amplified Microbiology Routine Well woman exam with routine gynecological exam Ordered: 09/09/2023 [facility] Comment on above: Ordered: 09/09/2023 Payers Date Payer Category Payer Unknown [id number] 2022 Unknown [employer] [id number] 2022-Present [address] [place] [address] [id number] 1988 Unknown [id number] 1988 Unknown [id number] Social History Date Type Detail Facility Start: 03-27-2023 Tobacco smoking status NHIS Ex-smoke r [facility] History of tobacco use Current smoker [facility] History of tobacco use Cigarette Smoker [facility] Start: 03-27-2023 Tobacco use and exposure Smoke less tobacco non-user [facility] Start: 09-09-2023 Alcohol intake Current drinke r of alcohol (finding) [facility] Start: 05-13-2023 End: 06-17-2023 [facility] Start: 05-13-2023 End: 06-17-2023 Alcohol Use Disorder Identification Test - Consumption [AUDIT-C] [facility] How often to you hav e a drink containing alcohol? Monthly or less [facility] How many standard dr inks containing alcohol do you have on a typical day? 1 or 2 [facility] How often do you hav e 6 or more drinks on 1 occasion? Never [facility] Start: 03-27-2023 Alcohol Comment Alcohol: 1 or 2 drinks on a typical day/monthly or less Caffeine: 2-3 cups/day [facility] Start: 1990 Sex Assigned At Not on file [facility] History of Present illness Narrative 09-09-2023 Joann Delgadillo LPN - 09/09/2023 1:00 PM EST Note Date & Type Note Facility 09-09-2023 History of Presen t illness Narrative Reason for Appointment: Patient ID: Heydi Sainz is a 33 y.o. female who presents for Well Women Visit Patient presents today for Annual Exam and Follow up to discuss results appointment. Current Medications: currently has no medications in their medication list. Medical History: Active Ambulatory Problems Diagnosis Date Noted No Active Ambulatory Problems Resolved Ambulatory Problems Diagnosis Date Noted No Resolved Ambulatory Problems Past Medical History: Diagnosis Date Pap smear for cervical cancer screening 01/21/2021 Family History Problem Relation Name Age of Onset Heart disease Maternal Grandfather Cancer Paternal Grandmother Breast Diabetes Paternal Grandfather Heart disease Paternal Grandfather Asthma Child Endometriosis Mother's Sister Other (hysterectomy) Mother's Sister Social History Tobacco Use Smoking status: Former Types: Cigarettes Smokeless tobacco: Never Substance Use Topics Alcohol use: Yes Comment: Alcohol: 1 or 2 drinks on a typical day/monthly or less Caffeine: 2-3 cups/day Drug use: Not on file Past Surgical History: Procedure Laterality Date DILATION AND CURETTAGE OF UTERUS 06/12/2023 HYSTEROSCOPY 06/12/2023 LAPAROSCOPY DIAGNOSTIC / BIOPSY / ASPIRATION / LYSIS 06/12/2023 TUBAL LIGATION 2020 WISDOM TOOTH EXTRACTION No Known Allergies Review of Systems: Review of Systems Constitutional: Negative. HENT: Negative. Eyes: Negative. Respiratory: Negative. Cardiovascular: Negative. Gastrointestinal: Negative. Genitourinary: Positive for menstrual problem and pelvic pain. Musculoskeletal: Negative. Skin: Negative. Neurological: Negative. All other systems reviewed and are negative. Hematological: Negative. Endocrine: Negative. Allergic/Immunologic: Negative. Objective Physical Exam Constitutional: Appearance: Normal appearance. She is well-developed. Genitourinary: Vulva normal. Breasts: Breasts are soft. Right: Normal. Left: Normal. Cardiovascular: Rate and Rhythm: Normal rate and regular rhythm. Pulmonary: Effort: Pulmonary effort is normal. Breath sounds: Normal breath sounds. Abdominal: General: Bowel sounds are normal. There is no distension. Palpations: Abdomen is soft. Tenderness: There is no abdominal tenderness. There is no guarding or rebound. Musculoskeletal: General: No swelling. Normal range of motion. Right lower leg: No edema. Left lower leg: No edema. Neurological: Mental Status: She is alert and oriented to person, place, and time. Skin: General: Skin is warm and dry. Psychiatric: Mood and Affect: Mood normal. Behavior: Behavior normal. Vitals and nursing note reviewed. Exam conducted with a tamping machine operator road forms present. Vitals: Estimated body mass index is 30.92 kg/m as calculated from the following: Height as of 05/13/23: 5' 9 . Weight as of this encounter: 209 lb 6.4 oz. BP: 116/70 No LMP recorded. Assessment/Plan Encounter Diagnosis Name Primary? Well woman exam with routine gynecological exam Patient presents today for an annual exam. Patient states she is doing well and has complaints of heavy and painful periods. Pt desires surgical management. Pt will be scheduled for endometrial ablation. Pap was obtained without difficulty. Pt to return for adipex in two weeks. Follow Up: Patient is to return in one year for annual unless needed otherwise. Documented by Joann Delgadillo LPN on behalf of: Hima Garsia DO documented in this encounter [facility] Evaluation note Note Date & Type Note Facility Evaluation note Diagnosis Well woman exam with routine gynecological exam Routine gynecological examination Weight gain Other symptoms concerning nutrition, metabolism, and development documented in this encounter [facility] Summary Purpose Family History No Family History [...] list: All Problems Smoker / SNOMED CT 205418785 / Confirmed Added secondary to documentation in Social History. Chronic constipation / SNOMED CT 805903090 / Confirmed Group B streptococcus / SNOMED CT 204361170 / Confirmed BMI 29.0- 29.9,adult / SNOMED CT 21368853 / Confirmed Inactive: Depression / SNOMED CT 44880306 Resolved: Tobacco use during / Patient Care Resolved: Fatigue / SNOMED CT 242587963 Resolved: Pulse visible in abdominal aorta / SNOMED CT 8687858334 Resolved: / SNOMED CT 093646358 Resolved: / SNOMED CT 085296915 Canceled: Vaginal candidiasis / SNOMED CT 227075707 Canceled: Insomnia / SNOMED CT 346277141 Canceled: Allerg (more content not included)... Additional Source Comments INFORMATION SOURCE (unrecogn ized section and content) DATE CREATED AUTHOR 10/29/2020 Romulo Ruiz [facility] DATE CREATED AUTHOR AUTHOR'S ORGANIZ ATION [facility] DATE CREATED AUTHOR AUTHOR'S ORGANIZ ATION 09/10/2023 [facility] EPIC Reason for Visit (unrecogniz ed section and content) Reason Comments Well Women Visit FOR RECORDS PERTAINING TO PATIENTS WHO ARE [...] BE BASED ON THE PRIMARY CLINICAL RECORDS. [facility] [employer] provides no warranty or guarantee of the accuracy or completeness of information in this document.
--- NOTE | 2023-10-19 14:39 | ECG_ITS ---
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
== END 2023-10-19 14:19 | disposition home or self-care (01) ==
LOC: PST 14:19
PROVIDERS: Visit Provider Obstetrics & Gynecology
DX: Z01.810 Encounter for preprocedural cardiovascular examination (principal); N92.0 Excessive and frequent menstruation with regular cycle; N93.9 Abnormal uterine and vaginal bleeding, unspecified; R10.2 Pelvic and perineal pain
CPT/HCPCS: 93005

== ENCOUNTER 2023-10-30 07:41 | Day surgery (SDC) | payer OTHER, SELFPAY ==
[2023-10-19 14:41] VITALS: BP 123/77; PULSE 77; RESP 16; TEMP 36.3; O2SAT 97; BMI 30.3
--- OUTSIDE RECORDS SUMMARY | 2023-10-30 07:45 | XMS_ITS | CCD ---
Author Organization [facility] Care Team Providers Care Asthma Educator Name Role Phone FRANSISCA GARCIA Attending Unavailable [...] Drug Class(es) Dates Sig (Normalized) Sig (Original) [id number] 200 actuat albuterol 0.09 mg/actuat metered dose [...] GDLNon AGE GDLN ACOG TESTING Note . [facility] Comment on above: TESTS RESULT FLAG U NITS REF RANGE LAB Clinician Provided Cytology Information Source.............Cervix;Endocervix No. of containers..01 ThinPrep Vial Age Algo ACOG Mora... FLAG LEGEND: L-Low Normal,H-High Normal,LL-Alert Low,HH-Alert High <-Panic Low,>-Panic High,A-Abnormal,AA-Critical Abnormal Performed at: 01 =G [address] [address] Isabella Galan MD, HPV APTIMA Negative Negative [facility] Comment on above: This nucleic acid am plification test detects fourteen high- risk HPV types (16,18,31,33,35,39,45,51,52,56,58,59,66,68) without differentiation. Performed at: =[address] [id number] [facility] Assistant: Isabella Galan MD, Phone: [phone] Performed at: [address] [id number] [facility] Assistant: Isabella Galan MD, Phone: [phone] IGP, APTIMA HPV, RFX 16/18,45 Note . [facility] Comment on above: TESTS RESULT FLAG UN ITS REF RANGE LAB DIAGNOSIS: 02 NEGATIVE FOR INTRAEPITHELIAL LESION OR MALIGNANCY. Specimen adequacy: 02 Satisfactory for evaluation. Endocervical and/or squamous metaplastic cells (endocervical component) are present. Performed by: 02 Heike Edwards, Curing Room Worker ([facility]) . 02 Note: Note 02 The [...] Low,>-Panic High,A-Abnormal,AA-Critical Abnormal Performed at: 02 [facility] [address] [place] [address] Isabella Galan MD, BRUSH-SPATULA [facility]IX [facility] Pane jackie 04-16-2023 Albumin [Mass/Vol] 4.7 g/dL Critically high 3.5-4.6 [facility] Comment on above: Performed By: #### C YULIET #### [facility] [address] [place] [address] ALP [Catalytic activity/Vol] 41 U/L Normal 40-130 [facility] Comment on above: Performed By: #### C MP #### [facility] [address] [place] [address] ALT [Catalytic activity/Vol] 9 U/L Normal 0-33 [facility] Comment on above: Performed By: #### C MP #### [facility] [address] [place] [address] Anion gap [Moles/Vol] 12 mmol/L Normal 9-15 [facility] Comment on above: Performed By: #### C MP #### [facility] [address] [place] [address] AST [Catalytic activity/Vol] 14 U/L Normal 0-35 [facility] Comment on above: Performed By: #### C MP #### [facility] [address] [place] [address] Bilirubin [Mass/Vol] 0.5 mg/dL Normal 0.2-0.7 [facility] Comment on above: Performed By: #### C MP #### [facility] [address] [place] [address] Calcium [Mass/Vol] 9.2 mg/dL Normal 8.5-9.9 [facility] Comment on above: Performed By: #### C MP #### [facility] [address] [place] [address] Chloride [Moles/Vol] 104 mmol/L Normal 95-107 [facility] Comment on above: Performed By: #### C MP #### [facility] [address] [place] [address] CO2 [Moles/Vol] 24 mmol/L Normal 20-31 [facility] Comment on above: Performed By: #### C MP #### [facility] [address] [place] [address] Creatinine [Mass/Vol] 0.71 mg/dL Normal 0.50-0.90 [facility] Comment on above: Performed By: #### C MP #### [facility] [address] [place] [address] GFR >60.0 Normal >60 [facility] Comment on above: Result Comment: Glenys atric [...] secretion. Performed By: #### C MP #### [facility] [address] [place] [address] Globulin (S) [Mass/Vol] 2.3 g/dL Normal 2.3-3.5 [facility] Comment on above: Performed By: #### C MP #### [facility] [address] [place] [address] Glucose [Mass/Vol] 102 mg/dL Critically high 70-99 [facility] Comment on above: Performed By: #### C MP #### [facility] [address] [place] [address] Potassium [Moles/Vol] 4.4 mmol/L Normal 3.4-4.9 [facility] Comment on above: Performed By: #### C MP #### [facility] [address] [place] [address] Protein [Mass/Vol] 7.0 g/dL Normal 6.3-8.0 [facility] Comment on above: Performed By: #### C MP #### [facility] [address] [place] [address] Sodium [Moles/Vol] 140 mmol/L Normal 135-144 [facility] Comment on above: Performed By: #### C MP #### [facility] [address] [place] [address] Urea nitrogen [Mass/Vol] 14 mg/dL Normal 6-20 [facility] Comment on above: Performed By: #### C MP #### [facility] [address] [place] [address] Lipid Panelon 04-16-2023 Cholesterol [Mass/Vol] 193 mg/dL Normal 0-199 [facility] Comment on above: Result Comment: ATP III Cholesterol classification is Desirable. Performed By: #### L IPID #### [facility] [address] [place] [address] Cholesterol in HDL [Mass/Vol] 67 mg/dL Critically high 40-59 [facility] Comment on above: Result Comment: ATP III [...] CHD Performed By: #### L IPID #### [facility] [address] [place] [address] Cholesterol in LDL [Mass/Vol] 115 mg/dL Normal 0-129 [facility] Comment on above: Result Comment: ATP III LDL Classification is Near Optimal. Performed By: #### L IPID #### [facility] [address] [place] [address] Triglyceride [Mass/Vol] 54 mg/dL Normal 0-150 [facility] Comment on above: Result Comment: ATP III Triglycerides Classification is Normal. Performed By: #### L IPID #### [facility] [address] [place] [address] Comprehensive Metabolic Pane jackie 05-27-2022 Albumin [Mass/Vol] 4.7 g/dL Critically high 3.5-4.6 [facility] Comment on above: Performed By: #### C MP #### [facility] [address] [place] [address] ALP [Catalytic activity/Vol] 37 U/L Low 40-130 [facility] Comment on above: Performed By: #### C MP #### [facility] [address] [place] [address] ALT [Catalytic activity/Vol] 7 U/L Normal 0-33 [facility] Comment on above: Performed By: #### C MP #### [facility] [address] [place] [address] Anion gap [Moles/Vol] 15 mmol/L Normal 9-15 [facility] Comment on above: Performed By: #### C MP #### [facility] [address] [place] [address] AST [Catalytic activity/Vol] 13 U/L Normal 0-35 [facility] Comment on above: Performed By: #### C MP #### [facility] [address] [place] [address] Bilirubin [Mass/Vol] mg/dL Normal 0.2-0.7 [facility] Comment on above: Performed By: #### C MP #### [facility] [address] [place] [address] Calcium [Mass/Vol] 9.4 mg/dL Normal 8.5-9.9 [facility] Comment on above: Performed By: #### C MP #### [facility] [address] [place] [address] Chloride [Moles/Vol] 103 mmol/L Normal 95-107 [facility] Comment on above: Performed By: #### C MP #### [facility] [address] [place] [address] CO2 [Moles/Vol] 24 mmol/L Normal 20-31 [facility] Comment on above: Performed By: #### C MP #### [facility] [address] [place] [address] Creatinine [Mass/Vol] 0.79 mg/dL Normal 0.50-0.90 [facility] Comment on above: Performed By: #### C MP #### [facility] [address] [place] [address] GFR >60.0 Normal >60 [facility] Comment on above: Result Comment: Glenys atric [...] secretion. Performed By: #### C MP #### [facility] [address] [place] [address] Globulin (S) [Mass/Vol] 2.5 g/dL Normal 2.3-3.5 [facility] Comment on above: Performed By: #### C MP #### [facility] [address] [place] [address] Glucose [Mass/Vol] 87 mg/dL Normal 70-99 [facility] Comment on above: Performed By: #### C MP #### [facility] [address] [place] [address] Potassium [Moles/Vol] 4.3 mmol/L Normal 3.4-4.9 [facility] Comment on above: Performed By: #### C MP #### [facility] [address] [place] [address] Protein [Mass/Vol] 7.2 g/dL Normal 6.3-8.0 [facility] Comment on above: Performed By: #### C MP #### [facility] [address] [place] [address] Sodium [Moles/Vol] 142 mmol/L Normal 135-144 [facility] Comment on above: Performed By: #### C MP #### [facility] [address] [place] [address] Urea nitrogen [Mass/Vol] 11 mg/dL Normal 6-20 [facility] Comment on above: Performed By: #### C MP #### [facility] [address] [place] [address] Lipid Panelon 05-27-2022 Cholesterol [Mass/Vol] 182 mg/dL Normal 0-199 [facility] Comment on above: Result Comment: ATP III Cholesterol classification is Desirable. Performed By: #### L IPID #### [facility] [address] [place] [address] Cholesterol in HDL [Mass/Vol] 52 mg/dL Normal 40-59 [facility] Comment on above: Result Comment: ATP III [...] CHD Performed By: #### L IPID #### [facility] [address] [place] [address] Cholesterol in LDL [Mass/Vol] 117 mg/dL Normal 0-129 [facility] Comment on above: Result Comment: ATP III LDL Classification is Near Optimal. Performed By: #### L IPID #### [facility] [address] [place] [address] Triglyceride [Mass/Vol] 65 mg/dL Normal 0-150 [facility] Comment on above: Result Comment: ATP III Triglycerides Classification is Normal. Performed By: #### L IPID #### [facility] [address] [place] [address] IntraOperative Documentson 0 10-29-2020 IntraOperative Documents [id number]#1. 00CD:127 Normal [facility] Postoperative Documentson Postoperative Documents [id number]#1. 00CD:127 Normal [facility] Coding Summary.on 10-24-2020 Coding Summary. CODING DATE: 10/24/2020 FINAL [facility] STATUS: Home (Routine DC) PAYOR: Medical Pinckard APC DESCRIPTION 5361 Level 1 Laparoscopy and Related Services ADMIT DX: REASON FOR VISIT DX: Z30.2 Encounter for sterilization FINAL DX: PRINCIPAL: Z30.2 Encounter for sterilization SECONDARY: Z87.891 Personal history of nicotine dependence PYMT PROC APC STAT DESCRIPTION DOCTOR NAME DATE 18335 5494 J1 Laparoscopy, surgical; Zeeshan Ta MD 10/19/2020 with removal of adnexal structures (partial or total oophorectomy and/or salpingectomy) 69529 Anesthesia for Finesse Rudolph MD 10/19/2020 intraperitoneal procedures in lower abdomen including laparoscopy; not otherwise specified NOTE: The code number assigned matches the documented diagnosis and / or procedure in the patient's chart. However, the narrative phrase printed from the coding software may appear abbreviated, or result in slightly different terminology. Revised Coded By: Elina Arreola Revised Date Saved: 10/24/2020 03:12 pm Normal [facility] Main OR Intraoperative Recor don 10-23-2020 Main OR Intraoperative Record IntraOp Document Type FT Summary Primary Physician: Zeeshan Ta MD Finalized Date/Time: 10/23/20 13:49:53 Pt. Name: HEYDI SAINZ/Sex: 1990 Female Med Rec #: [id number] Physician: Zeeshan Ta MD Financial #: [id number] Pt. Type: A Room/Bed: Admit/Disch: 10/19/20 11:05:15 [...] Quinn Role Performed Anesthesiologist Surgeon - Primary Administrative Resident - Primary Lighting Technician Time In 10/19/20 12:59:00 10/19/20 13:13:00 10/19/20 12:59:00 Time Out 10/19/20 13:49:00 10/19/20 13:39:00 10/19/20 13:49:00 Procedure TUBAL LIGATION TUBAL LIGATION TUBAL LIGATION LAPAROSCOPIC(Bilateral ) LAPAROSCOPIC(Bilateral ) LAPAROSCOPIC(Bilateral ) Comments , anesthesia cytotechnologist supervisor Last Modified By: Isaías ASHRAF, Stuart Metz RN, Stuart Stephenson RN 10/19/20 13:53:59 10/19/20 13:53:59 10/19/20 13:53:59 Entry 4 Entry 5 Entry 6 Case Attendee Jarred RN, Dallas Tong FOOTWEAR FACTORY WORKER, Tonya Montaño RN, CNOR, Yani Role Performed Administrative Resident - Primary Scrub - Primary RN RECOVERY Time In 10/19/20 12:59:00 10/19/20 12:59:00 10/19/20 [...] Ash Time Out Complete 10/19/20 13:15:00 Participants Jazmine, Keyon MACIAS, Zeeshan Hernandez, Isaías ASHRAF, Jarred Levin RN, Dallas Cisneros, Alycia MACHADO, Tonya Randle, Sabra RN, CNOR, Dolly Valle Outcomes Met? Yes [...] and tissue Entry 1 Skin Integrity Intact, [place], Warm, and Skin Abnormality No Dry Outcomes [...] Stuart Metz RN, RN, Andrea L 10/19/20 13:49:11 10/19/20 13:49:11 Post-Care Text: The [...] 10/19/20 13:09:00 10/19/20 13:37:00 By Jarred ASHRAF, Jarred Shrestha RN, Dallas Cisneros, Alycia FOOTWEAR FACTORY WORKER, Tonya Tong FOOTWEAR FACTORY WORKER, Tonya Randle Outcomes Met? Yes Yes Last Modified By: Stuart Metz RN, RN, Andrea L 10/19/20 13:14:31 10/19/20 13:38:36 Post-Care Text: The [...] Cisneros Patient Status Stable Skin. Condition Intact, [place], Warm, and Description SAME PREOPERATIVE Dry CONDITION [...] Dressing Items BANDAID SHEER 1 X 3 [69840][F] Site and Details ABDOMEN- MASTISOL, Outcomes Met? [...] safely administered during the perioperative period For Sebastian-Laurens please see scanned medication reconcilliation form for medications used at the field during the procedure. Urinary Catheter Pre-Care Text: Patient is prepped using sterile technique. Entry 1 Urinary Catheter CATH URETHRAL STRAIGHT Present Upon Arrival No Inserted 16FR [[id number]][F] Insertion Date/Time 10/19/20 13:15:00 Insertion Site Uretheral Urine URINE OUTPUT NOT Inserted By Jarred ASHRAF, Dallas Cisneros Characteristics MEASURED FOR CASE Discontinued? Yes When [...] BLANKET MISTRAL AIR Quantity 1 Aid TORSO [[id number]][F] Fluid/[place] Unit Mistral warming system Setting 43 C/ [...] ANGEL Montaño RN, Lou Ann 10/23/20 13:49 [facility] Consent for Anesthesiaon Consent for Anesthesia [id number]#1.0 0CD:127 [facility] Discharge Instructionson Discharge Instructions [id number]#1.0 0CD:127 Normal [facility] IntraOperative Documentson 0 10-22-2020 IntraOperative Documents [id number]#1.0 0CD:127 Normal [facility] IntraOperative Documents [id number]#1.0 0CD:127 Normal [facility] Physician Orderon 10-22-2020 Physician Order [id number]#1.0 0CD:127 [facility] Preoperative Documentson Preoperative Documents [id number]#1.0 0CD:127 [facility] Operative Reporton Operative Report Date of Surgery: [...] Zeeshan Ta MD, FACOG lkr Dictated: 10/19/2020 #[id number] Typed: 10/19/2020 #[id number] cc: Zeeshan Ta MD, MADELEINE [facility] Comment on above: Result Comment: Elec tronically Signed By: Keyon MACIAS, Zeeshan Hernandez\.br\Date and Time Signed: 10/20/20 10:50 EDT Consent for Treatmenton 10-01 Consent for Treatment [id number]#1.0 0CD:127 [facility] History and Physicalon 10-19 History and Physical [...] allergies. Medications: No medicines. Illnesses: None. Surgeries: Irons teeth. FAMILY HISTORY: Positive for hypertension. PSYCHOSOCIAL [...] Zeeshan Ta MD, FACOG gls Dictated: 10/18/2020 #[id number] Typed 10/19/2020 #[id number] cc: Zeeshan Ta MD, FACOG [facility] Comment on above: Result Comment: Elec tronically Signed By: Zeeshan Ta MD\.br\Date and Time Signed: 10/19/20 09:57 EDT Inpatient Patient Summaryon 10-19-2020 Inpatient Patient Summary [place] [address] [facility] Clinical Discharge Instructions PERSON INFORMATION Name: HEYDI SAINZ [facility][id number] PHYSICIANS Admitting Physician: Zeeshan aT MD Attending Physician: Zeeshan Ta MD PCP: Karissa CALDERON MD Discharge Diagnosis: Encounter for sterilization; Status post bilateral salpingectomy Comment: PATIENT EDUCATION INFORMATION Instructions: COUNTER MAKER - Post D&C, Hysteroscopy, LEEP or Essure/Laparoscopy (CUSTOM); Post Op Patient Instructions - FT (CUSTOM) Medication Leaflets: Follow up: With: Address: When: Zeeshan Ta [address], [place], [place] [id number] Business (1) Within 2 weeks Comments: Call for any problems. Call for followup appointment MEDICATION LIST New Medications [facility] [address], [address] [phone], [phone] acetaminophen-oxycodon e (Percocet 325 mg-5 mg Tab) 1 Tablets By Mouth every 6 hours as needed for pain for 2 Days. Refills: 0. Medications to Continue with No Changes Other Medications multivitamin (Multi Vitamins oral tablet) 1 Tablets By Mouth every day as needed Prophylaxis. Comment: Sanjeev [facility] Main OR PACU I Recordon 10-01 Main OR PACU I Record PACU Phase I Document Type FT Summary Primary Physician: Zeeshan Ta MD Finalized Date/Time: 10/19/20 15:20:31 Pt. Name: HEYDI SAINZ/Sex: 1990 Female Med Rec #: [id number] Physician: Zeeshan Ta MD Financial #: [id number] Pt. Type: A Room/Bed: [place] [address] Admit/Disch: 10/19/20 11:05:15 - Institution: Case Times [...] I Outcomes Met? Yes Last Modified By: Radha ASHRAF, Lindy Manuel 10/19/20 15:20:06 Post-Care Text: The patient demonstrates [...] By: Lindy Garcia RN 10/19/20 15:20 Normal [facility] Main OR PACU II Recordon Main OR PACU II Record PACU Phase II Document Type FT Summary Primary Physician: Zeeshan Ta MD Finalized Date/Time: 10/19/20 17:29:50 Pt. Name: HEYDI SAINZ/Sex: 1990 Female Med Rec #: [id number] Physician: Zeeshan Ta MD Financial #: [id number] Pt. Type: A Room/Bed: [facility] Admit/Disch: 10/19/20 11:05:15 - Institution: [...] By: Marti Wallace RN 10/19/20 17:29 Normal [facility] Main OR Preoperative Recordo n 10-19-2020 Main OR Preoperative Record PreOp Document Type FT Summary Primary Physician: Zeeshan Ta MD Finalized Date/Time: 10/19/20 13:00:13 Pt. Name: HEYDI SAINZ/Sex: 1990 Female Med Rec #: [id number] Physician: Zeeshan Ta MD Financial #: [id number] Pt. Type: A Room/Bed: AS10/01 Admit/Disch: 10/19/20 11:05:15 - Institution: Case Times [...] By: Stuart Metz RN 10/19/20 13:00 Normal [facility] Monitor Recordon 10-19-2020 Monitor Record [id number]#1. 00CD:127 Normal [facility] Outpatient Surgery Discharge Instructionon 10-19-2020 Outpatient Surgery Discharge Instruction [place] [address] Patient Discharge Instructions PERSON INFORMATION Name: HEYDI [...] THE NEAREST EMERGENCY ROOM OR CALL 911 ALISTAIR Porter ASHLEY A, have received the attached patient education materials/instructions and have verbalized understanding: May we do a follow up call? Yes No I was present when discharge instructions were given Patient Signature Date Clinican/Nurse Signature ___ Date Follow up: With: Address: When: Zeeshan Khannaten [address], [address], [place] [address] Business (1) Within 2 weeks Comments: Call for any problems. Call for followup appointment Pharmacy Information: Other: [facility] You may receive a survey from [employer] asking you to rate your care experience. Your feedback is important and will help us understand what we do well and how we can improve the quality of care we provide to you, your loved ones and our community. It?s an honor to serve you. Thank you for choosing [facility] HERE ARE THE MEDICATION CHANGES THAT OCCURRED DURING YOUR HOSPITAL STAY New Medications [facility] [address], [address] [phone], [phone] acetaminophen-oxycodon e (Percocet 325 mg-5 mg Tab) [...] cramps. PLEASE CALL FOR ANY PROBLEMS Normal [facility] Outside Recordson 10-19-2020 Outside Records [id number]#1. 00CD:127 Normal [facility] Patient Education - Texton 0 10-19-2020 [...] cramps. PLEASE CALL FOR ANY PROBLEMS Normal [facility] Progress Note-Physicianon Progress Note-Physician Patient: HEYDI [...] list: All Problems Smoker / SNOMED CT 203635527 / Confirmed Added secondary to documentation in Social History. Chronic constipation / SNOMED CT 958047306 / Confirmed Group B streptococcus / SNOMED CT 143894460 / Confirmed BMI 29.0-29.9,adult / SNOMED CT 83992675 / Confirmed Inactive: Depression / SNOMED CT 63407417 Resolved: Tobacco use during / Patient Care Resolved: Fatigue / SNOMED CT 073961181 Resolved: Pulse visible in abdominal aorta / SNOMED CT 9294882489 Resolved: / SNOMED CT 995259480 Resolved: / SNOMED CT 958062418 Canceled: Vaginal candidiasis / SNOMED CT 964093245 Canceled: Insomnia / SNOMED CT 667853121 Canceled: Allergic contact dermatitis / SNOMED CT 090086324 Canceled: Abnormal weight loss / SNOMED CT 029171730 Canceled: Peripheral edema / SNOMED CT 535012823 Histories Past Medical History: Resolved (550392249): Onset on 11/01/2014 at 24 years. Resolved on 06/24/2015 at 25 years. Tobacco use during : Resolved on 06/02/2011 at 21 years. Fatigue (791035478): Resolved. Pulse visible in abdominal aorta (0590641448): Resolved. Procedure history: Esophagogastroduodenos copy (281668637) on 03/29/2012 at 22 Years. Extraction of impacted wisdom teeth (964974020). Social History Social & Psychosocial Habits Alcohol [...] review: No qualifying data available . Plan [place] [employer]esthesiologists (ASA) physical status classification: [...] heart and lungs, allergic reactions, and .. [facility] Comment on above: Result Comment: Elec tronically Signed By: Ronni MACIAS, Finesse\.br\Date and Time Signed: 10/19/20 15:53 EDT Coding Summary.on 10-18-2020 Coding Summary. CODING DATE: 10/18/2020 FINAL [facility] STATUS: Home (Routine DC) PAYOR: Medical Pinckard ADMIT DX: REASON FOR VISIT DX: Z01.812 [...] [place]arg[place] CphT Date Saved: 10/18/2020 04:36 pm [facility] Consent for Procedure/Surger yon 10-18-2020 Consent for Procedure/Surgery [id number]#1. 00CD:127 [facility] Comment on above: Other Comment: oops History and Physicalon 10-18 History and Physical [id number]#1. 00CD:127 [facility] Comment on above: Other Comment: oops BUNon 10-12-2020 Urea nitrogen [Mass/Vol] 10 mg/dL Normal - [facility] Comment on above: Performed By: #### 2 758936, 1846611, 8861122, 16824490, 64421950, 7081328 ####[facility] [address] [place] [address] CBC w/Indiceson 10-12-2020 Erythrocyte distribution width (RBC) [Ratio] 14.3 % High 10.9-14.2 [facility] Comment on above: Performed By: #### 2 898500, 7727579, 5222021, 64771131, 26920783, 2741794 #### [facility] [address] [place] [address] Hematocrit (Bld) [Volume fraction] 35.8 % Normal 34.0-46.0 [facility] Comment on above: Performed By: #### 2 135687, 2833771, 8281323, 26752549, 03436260, 8838376 #### [facility] [address] [place] [address] Hemoglobin (Bld) [Mass/Vol] 12.0 g/dL Normal 12.0-16.0 [facility] Comment on above: Performed By: #### 2 555442, 2432579, 1663807, 21839678, 22398667, 7952479 #### [facility] [address] [place] [address] MCH (RBC) [Entitic mass] 31.5 pg Normal 27.0-34.0 [facility] Comment on above: Performed By: #### 2 146424, 1911952, 8861920, 03154543, 87953076, 9561821 #### [facility] [address] [place] [address] MCHC (RBC) [Mass/Vol] 33.4 g/dL Normal 31.4-36.0 [facility] Comment on above: Performed By: #### 2 835343, 6167751, 4961982, 68619958, 73425011, 4969133 #### [facility] [address] [place] [address] MCV (RBC) [Entitic vol] 94.2 fL Normal 80.0-100.0 [facility] Comment on above: Performed By: #### 2 212886, 5484897, 7250419, 99768897, 41513439, 4053292 #### [facility] [address] [place] [address] Platelet mean volume (Bld) [Entitic vol] 8.4 fL Normal 6.4-10.8 [facility] Comment on above: Performed By: #### 2 469171, 7098911, 0179404, 03301689, 74616706, 1036067 #### [facility] [address] [place] [address] Platelets (Bld) [#/Vol] 262.0 E9/L Normal 150.0-500.0 [facility] Comment on above: Performed By: #### 2 919175, 1050206, 0401890, 84302032, 93543008, 2756624 #### [facility] [address] [place] [address] RBC (Bld) [#/Vol] 3.8 E12/L Low 4.3-5.9 [facility] Comment on above: Performed By: #### 2 543967, 0386131, 6808513, 06351877, 80685256, 9984924 #### [facility] [address] [place] [address] WBC corrected for nucl RBC Auto (Bld) [#/Vol] 8.0 E9/L Normal 4.0-11.0 [facility] Comment on above: Performed By: #### 2 840560, 9043344, 1726206, 33339425, 22380589, 1367561 #### [facility] [address] [place] [address] Consent for Treatmenton 10-01 Consent for Treatment [id number] 0CD:127 Normal [facility] Creatinineon 03-12-2021 Creatinine [Mass/Vol] 0.7 mg/dL Normal 0.5-1.3 [facility] Comment on above: Performed By: #### 2 180732, 0594539, 3794237, 13442515, 70088762, 4128026 ####[facility] [address] [place] [address] Lyteson 10-12-2020 Anion gap [Moles/Vol] 13 mmol/L Normal 6-16 [facility] Comment on above: Performed By: #### 2 062412, 3385663, 4919748, 02902774, 75106121, 8218423 ####[facility] [address] [place] [address] Chloride [Moles/Vol] 105 mmol/L Normal 101-111 [facility] Comment on above: Performed By: #### 2 786899, 0237571, 0970919, 50826019, 57004477, 7504563 ####[facility] [address] [place] [address] CO2 [Moles/Vol] 24 mmol/L Normal 21-[address] [facility] Comment on above: Performed By: #### 2 698533, 2183991, 9989826, 38257096, 34464158, 3820448 ####[facility] [address] [place] [address] Potassium [Moles/Vol] 3.6 mmol/L Normal 3.5-5.3 [facility] Comment on above: Performed By: #### 2 551840, 4738297, 8117953, 51437360, 37291756, 2281522 ####[facility] [address] [place] [address] Sodium [Moles/Vol] 138 mmol/L Normal 135-145 [facility] Comment on above: Performed By: #### 2 547555, 3433278, 2706303, 28565449, 73853353, 5259001 ####[facility] [address] [place] [address] PT & PTTon 10-12-2020 aPTT Coag (PPP) [Time] 25.7 second(s) Normal 25.1-36.5 [facility] Comment on above: Result Comment: Hepa rin therapeutic range (represented by Anti-Factor Xa activity of 0.2 - 0.4 U/mL) corresponds to PTT of 56.6 - 109.0 sec. Performed By: #### 2 617121, 7955170, 5029824, 83257675, 09720170, 2410354 ####[facility] [address] [place] [address] INR Coag (PPP) [Relative time] 1.1 {INR} [facility] Comment on above: Result Comment: INR results are specifically intended to assess patients stabilized on long-term Anticoagulation therapy suggested INR?s ?Less Intensive Anticoagulation? 2.0 ? 3.0 Conventional Range 3.0 ? 4.5 Performed By: #### 2 761124, 1943026, 9461232, 26555551, 10625721, 3539660 ####[facility] [address] [place] [address] PT Coag (PPP) [Time] 12.9 second(s) Normal 10.2-12.9 [facility] Comment on above: Performed By: #### 2 297517, 9125684, 4276623, 72980241, 30711245, 7140406 ####[facility] [address] [place] [address] U BetaHcg Qualon 10-12-2020 HCG.beta subunit (U) [Moles/Vol] Negative Normal [facility] Comment on above: Performed By: #### 2 5340316 ####[facility] [address] [place] [address] eGFRon 10-12-2020 GFR/1.73 sq M predicted among blacks MDRD (S/P/Bld) [Vol rate/Area] mL/min/{1.73_m2} Normal >=59 [facility] Comment on above: Order Comment: Order added by Discern Expert. Result Comment: eGFR is race adjusted. AA=. Performed By: #### 2 549073, 5441743, 7962467, 46510358, 02582525, 3081305 ####[facility] [address] [place] [address] GFR/1.73 sq M predicted among non-blacks MDRD (S/P/Bld) [Vol rate/Area] mL/min/{1.73_m2} Normal >=59 [facility] Comment on above: Order Comment: Order added by Discern Expert. Result Comment: Machine Puller Over teresa kidney disease could be indicated at eGFR's of less than 60 mL/min/1.73m2. Kidney failure is indicated at less than 15 mL/min/1.73m2. Performed By: #### 2 262758, 7743019, 3471651, 13678393, 39810254, 1037294 ####[facility] [address] [place] [address] Physician Orderon 10-10-2020 Physician Order [id number]. 00CD:127 Normal [facility] Consent for Procedure/Surger yon 10-09-2020 Consent for Procedure/Surgery [id number]. 00CD:127 Normal [facility] US Aorta Completeon 01-23-20 20 US [...] Watts M.D. Transcribed by: DEBORAH Technologist: ARNAV [facility] Coding Summary.on 01-20-2020 Coding Summary. CODING DATE: 01/20/2020 [facility] STATUS: Home (Routine DC) PAYOR: Medical Pinckard APC DESCRIPTION 5522 Level 2 Imaging without [...] Vargas CphT Date Saved: 01/20/2020 10:51 am [facility] Consent for Treatmenton 01-01 Consent for Treatment [id number] 0CD:127 [facility] Vital Signs Date Time Vital Sign Value Performing Clinician Janey manrique 09-09-2023 13:09-0500 Body mass index (BMI) [Ratio] 30.92 kg/m2 Hima Ady DO Work Phone: [facility] 09-09-2023 13:09-0500 Body weight 94.98 kg Hima Ady DO Work Phone: [facility] 09-09-2023 13:09-0500 Diastolic blood pressure 70 mm[Hg] Hima Ady DO Work Phone: [facility] 09-09-2023 13:09-0500 Systolic blood pressure 116 mm[Hg] Hima Ady DO Work Phone: [facility] Healthcare Encounters Encounter Date Encounter Type Care Provider Facility Start: 09-09-2023 End: 09-09-2023 ambulatory HIMA ADY Not Available Start: 09-09-2023 Clinisync Result Encounter Hima Ady DO Work Phone: [facility] External Department Unsolicited Start: 09-09-2023 Clinisync Result Encounter Hima Garsia DO Work Phone: [facility] External Department Unsolicited Start: 09-09-2023 End: 09-09-2023 Patient encounter procedure Hima Garsia DO Work Phone: [facility] Healthcare Work Phone: Start: 09-09-2023 End: 09-09-2023 Periodic preventive med est patient 18-39 yrs Hima Garsia DO Work Phone: [facility] Comment on above: Well woman exam with routine gynecological exam; Weight gain Start: 06-18-2023 End: 06-18-2023 ambulatory FRANSISCA RADHA Not Available Procedures Date Procedure Procedure Detail Performing Clinician Start: 09-09-2023 IGP,APTIMA HPV,AGE GDLN Hima Garsia DO Work Phone: Plan of Treatment Date Care Activity Detail Author Start: 10-06-2023 End: 10-06-2023 Patient encounter procedure 10/06/2023 2:50 PM EST Consult [facility] [address] [place] [address] Hima Garsia, DO [address] [facility] Cytology Cervical or vaginal smear or scraping study Pap Smear Pathology and Cytology Routine Well woman exam with routine gynecological exam Ordered: 09/09/2023 [facility] Work Phone: Comment on above: Ordered: 09/09/2023 Human papilloma viru s DNA [Presence] in Unspecified specimen by Probe with amplification HPV DNA probe, amplified Microbiology Routine Well woman exam with routine gynecological exam Ordered: 09/09/2023 [facility] Comment on above: Ordered: 09/09/2023 Payers Date Payer Category Payer Unknown [id number] 2022 Unknown [employer] [id number] 2022-Present [address] [place] [address] [id number] 1988 Unknown [id number] 1988 Unknown [id number] Social History Date Type Detail Facility Start: 03-27-2023 Tobacco smoking status LAIS Ex-smoke r [facility] History of tobacco [...] Sex Assigned At Not on file N [facility] History of Present illness Narrative 09-09-2023 [...] nursing note reviewed. Exam conducted with a him coder present. Vitals: Estimated body mass index is [...] list: All Problems Smoker / SNOMED CT 450139347 / Confirmed Added secondary to documentation in Social History. Chronic constipation / SNOMED CT 211356903 / Confirmed Group B streptococcus / SNOMED CT 594019167 / Confirmed BMI 29.0- 29.9,adult / SNOMED CT 48962581 / Confirmed Inactive: Depression / SNOMED CT 94700010 Resolved: Tobacco use during / Patient Care Resolved: Fatigue / SNOMED CT 849691609 Resolved: Pulse visible in abdominal aorta / SNOMED CT 2049327289 Resolved: / SNOMED CT 257411381 Resolved: / SNOMED CT 994619389 Canceled: Vaginal candidiasis / SNOMED CT 760405766 Canceled: Insomnia / SNOMED CT 501430404 Canceled: Allerg (more content not included)... Additional Source Comments INFORMATION SOURCE (unrecogn ized section and content) DATE CREATED AUTHOR 10/29/2020 [facility] DATE CREATED AUTHOR AUTHOR'S ORGANIZ ATION 04/18/2023 [facility] DATE CREATED AUTHOR AUTHOR'S MIKAELA WILDE 09/10/2023 [facility] EPIC Reason for Visit (unrecogniz [...] BE BASED ON THE PRIMARY CLINICAL RECORDS. [facility] [employer] provides no warranty or guarantee of the accuracy or completeness of information in this document.
[2023-10-30 07:58] LABS: Basophils Percent Auto 0.8 % (0.2-2.0); Eosinophils Absolute Auto 0.2 10^3/uL (0.0-0.7); Eosinophils Percent Auto 3.7 % (0.9-7.0); Hematocrit 35.3 % (36.0-48.0); Hemoglobin 11.4 g/dL (12.0-16.0); Immature Granulocytes Abs Auto 0.01 10^3/uL (0.00-0.03); Immature Granulocytes Pct Auto 0.2 % (0.0-0.5); Lymphocytes Absolute Auto 1.8 10^3/uL (1.2-3.8); Lymphocytes Percent Auto 34.2 % (20.5-60.0); Mean Corpuscular HGB Conc 32.3 g/dL (29.9-35.2); Mean Corpuscular Hemoglobin 30.6 pg (26.7-34.0); Mean Corpuscular Volume 94.6 fL (81.0-99.0); Monocytes Absolute Auto 0.6 10^3/uL (0.3-0.8); Monocytes Percent Auto 10.6 % (1.7-12.0); Neutrophils Absolute Auto 2.6 10^3/uL (1.4-6.5); Neutrophils Percent Auto 50.5 % (43.0-75.0); Platelet Count 275 10^3/uL (150-450); Red Blood Count 3.73 10^6/uL (4.20-5.40); Red Cell Distribution Width 13.6 % (11.0-15.0); White Blood Count 5.2 10^3/uL (4.0-11.0)
[2023-10-30 08:02] VITALS: BP 118/65; PULSE 74; TEMP 36.2; O2SAT 100; BMI 30.3
[2023-10-30] MEDS: SCOPOLAMINE 1 MG/3 DAYS TRANSDERM PATCH 1 PATCH TD (08:20)
[2023-10-30] MEDS: LACTATED RINGER'S SOLUTION 1,000 ML 50 ML IV (08:20)
[2023-10-30 08:27] LABS: HCG Quantitative <1 mIU/mL
--- NOTE | 2023-10-30 10:20 | PM.ONB ---
Brief Operative Note Date of procedure: 10/30/23 Pre-op diagnosis general: menorrhagia Post-op diagnosis: same as pre-op Procedure: NAME OF PROCEDURE: [ ] Alicia endometrial ablation with hysteroscopy. PROCEDURE: The patient was taken back to the OR where she was prepped and draped in the normal sterile fashion after being placed in the dorsal lithotomy position, after being placed under general anesthesia without difficulty.? A weighted speculum was placed into the vagina. The anterior lip was grasped with a single tooth tenaculum. The patient was then sounded to approximated 8cm. The patient?s cervix was gently dilated using hegardilators. The hysteroscope was passed through the cervix into the uterus where both ostia were seen. No gross evidence of polyps, fibroids or malignancy. The cervical length was noted to be 4 cm. The total cavity length is 4cm.? The Alicia ablation apparatus was set to approximately 4cm in length. This was placed through the cervix and into the uterus. After the seal was tested, at that time the total ablation of 120 seconds was performed with the Alicia withoutdifficulty. All instruments were removed from the vagina. Excellent hemostasis noted.? Sponge and lap count correct times 2.? Patient taken to recovery in stable condition. Anesthesia: GETA Surgeon: Daniel Garsia Estimated blood loss (mL): 5 Pathology: none sent Condition: stable Disposition: PACU Urinary Catheter Management Urinary Catheter Management Urethral: Cath placed during this visit: no
[2023-10-30 10:26] VITALS: BP 92/55; PULSE 61; TEMP 36.2; O2SAT 95
[2023-10-30 10:41] VITALS: BP 96/53; PULSE 54; O2SAT 95
[2023-10-30 10:56] VITALS: BP 96/58; PULSE 71; O2SAT 98
[2023-10-30 11:24] VITALS: BP 103/60; PULSE 74; O2SAT 97
== END 2023-10-30 11:24 | disposition home or self-care (01) ==
PROVIDERS: Visit Provider Obstetrics & Gynecology
PROC: (CPT 952; principal; 2023-10-30 09:05)
DX: N92.0 Excessive and frequent menstruation with regular cycle (principal); N93.9 Abnormal uterine and vaginal bleeding, unspecified; R10.2 Pelvic and perineal pain; Z79.84 Long term (current) use of oral hypoglycemic drugs; Z87.891 Personal history of nicotine dependence; Z98.51 Tubal ligation status; R63.5 Abnormal weight gain; Z68.30 Body mass index [BMI] 30.0-30.9, adult
CPT/HCPCS: 58563; 36415; 84702; 85025; J1094; J2704

== ENCOUNTER 2025-02-22 10:57 | Outpatient (OUT) | payer OTHER, SELFPAY ==
[2025-02-22 11:57] LABS: Hematocrit 37.1 % (36.0-48.0); Hemoglobin 12.6 g/dL (12.0-16.0); Immature Granulocytes Abs Auto 0.02 10^3/uL (0.00-0.03); Immature Granulocytes Pct Auto 0.3 % (0.0-0.5); Lymphocytes Absolute Auto 1.3 10^3/uL (1.2-3.8); Mean Corpuscular HGB Conc 34.0 g/dL (29.9-35.2); Mean Corpuscular Hemoglobin 31.6 pg (26.7-34.0); Mean Corpuscular Volume 93.0 fL (81.0-99.0); Platelet Count 268 10^3/uL (150-450); Red Blood Count 3.99 10^6/uL (4.20-5.40); White Blood Count 7.4 10^3/uL (4.0-11.0)
[2025-02-22 12:37] LABS: Alanine Aminotransferase 18 U/L (14-59); Albumin Globulin Ratio 1.1; Albumin Level 3.7 g/dL (3.4-5.0); Alkaline Phosphatase 52 U/L (46-116); Anion Gap 12.5; Aspartate Amino Transferase 10 U/L (15-37); Blood Urea Nitrogen 9.0 mg/dL (7.0-18.0); Calcium 9.1 mg/dL (8.5-10.1); Carbon Dioxide 29.5 mmol/L (21.0-32.0); Chloride 102 mmol/L (98-107); Estimated GFR (African America >60 (>=60 mL/min/1.73m^2); Estimated GFR (Non-African Ame >60 (>=60 mL/min/1.73m^2); Globulin 3.4 g/dL; Glucose 96 mg/dL (74-106); Potassium 4.0 mmol/L (3.5-5.1); Sodium 140 mmol/L (136-145); Total Protein 7.1 g/dL (6.4-8.2)
[2025-02-22 12:54] LABS: INR 1.03; Partial Thromboplastin Time 25.3 sec (22.3-36.2); Prothrombin Time 10.9 sec (9.0-11.6)
== END 2025-02-22 10:58 | disposition home or self-care (01) ==
PROVIDERS: Visit Provider Obstetrics & Gynecology
DX: Z01.812 Encounter for preprocedural laboratory examination (principal); N92.0 Excessive and frequent menstruation with regular cycle; R10.2 Pelvic and perineal pain; N94.6 Dysmenorrhea, unspecified; N94.10 Unspecified dyspareunia; N93.9 Abnormal uterine and vaginal bleeding, unspecified
CPT/HCPCS: 36415; 80048; 80076; 85025; 85610; 85730; 86850; 86900; 86901

== ENCOUNTER 2025-03-01 14:52 | Emergency (ER) | payer OTHER, SELFPAY ==
[2025-03-01 15:02] VITALS: BP 126/84; PULSE 80; TEMP 36.8; O2SAT 99; BMI 29.5
[2025-03-01 15:34] LABS: Glucose Urine UA NEGATIVE (NEGATIVE); HCG Qualitative Urine* NEGATIVE (NEGATIVE)
[2025-03-01 15:40] LABS: Cast Seen? NONE SEEN #/LPF (NONE SEEN); Crystals Seen? None Seen #/HPF (None Seen); Urine Culture Indicated NO
== END 2025-03-01 16:30 | disposition left against medical advice (07) ==
LOC: ER 14:56
PROVIDERS: Emergency Provider Emergency Medicine
DX: Z53.21 Procedure and treatment not carried out due to patient leaving prior to being seen by health care provider (principal); R10.9 Unspecified abdominal pain
CPT/HCPCS: 81001; 84703; 99281; 99285